=== PATIENT | female | born 1970 | race Caucasian/White ===

== ENCOUNTER → 2016-11-15 | Outpatient (CLI) | payer OTHER ==
--- NOTE | 2016-11-15 08:32 | US ---
EXAMINATION TYPE: US abdomen limited DATE OF EXAM: 11/15/2016 8:04 AM COMPARISON: NONE CLINICAL HISTORY: Abd Distention R14.0. Bloating, right sided pain, nausea/vomiting EXAM MEASUREMENTS: Liver Length: 19.0 cm Gallbladder Wall: 0.3 cm CBD: 0.4 cm Right Kidney: 10.9 x 4.7 x 5.3 cm Findings: Pancreas: visualized portions appear wnl Liver: upper limits of normal Gallbladder: hyperechoic area = 0.7cm Evidence for sonographic White's sign: Yes CBD: wnl Right Kidney: no evidence of hydronephrosis or mass Scanned within patient's area of concern (patient feels lumps mid/right abdomen), hypoechoic area = 0 .7 x 0.6 x 1.0cm IMPRESSION: 1. Nonspecific Hypoechoic area at the site of clinical concern.
--- NOTE | 2016-11-16 09:48 | MM ---
Reason for exam: screening (asymptomatic). Last mammogram was performed 2 years and 2 months ago. Physical Findings: A clinical breast exam by your physician is recommended on an annual basis and results should be correlated with mammographic findings. MG Screening Mammo w CAD Bilateral CC and MLO view(s) were taken. Prior study comparison: September 25, 2014, bilateral MG screening mammo w CAD. July 27, 2006, bilateral screening mammogram w/CAD. The breast tissue is heterogeneously dense. This may lower the sensitivity of mammography. There is no discrete abnormality. No significant changes when compared with prior studies. ASSESSMENT: Negative, BI-RAD 1 RECOMMENDATION: Routine screening mammogram of both breasts in 1 year.
== END | disposition home or self-care (01) ==
LOC: RADMAMWWP 06:58
PROVIDERS: ATTEND Family Medicine
DX: Z12.31 Encounter for screening mammogram for malignant neoplasm of breast (principal); R14.0 Abdominal distension (gaseous)
CPT/HCPCS: 76705; G0202

== ENCOUNTER 2017-04-26 10:51 | Observation (INO) | payer OTHER ==
[2017-04-26] MEDS ORDERED: SODIUM CHLORIDE 0.9% 1,000 ML IV STA (12:34)
[2017-04-26] MEDS ORDERED: ASPIRIN 81 MG CHEW PO STA (12:34)
[2017-04-26] MEDS ORDERED: NITROGLYCERIN SL TABS 0.4 MG TAB SUBLINGUAL STA ×3 (12:34)
--- NOTE | 2017-04-26 12:44 | ED ---
General Adult HPI - General Chief complaint: Chest Pain Stated complaint: back pain Time Seen by Provider: 04/26/17 11:08 Source: patient, RN notes reviewed Mode of arrival: ambulatory Limitations: no limitations - History of Present Illness Initial comments: Patient is a pleasant 47-year-old female presenting to the emergency department complaining of chest discomfort. Onset was this morning. Discomfort is under the left breast and goes the back. Patient states discomfort increases with deep breaths. No associated dyspnea or nausea or sweating. - Related Data Allergies Allergy/AdvReac Type Severity Reaction Status Date / Time latex Allergy Unknown Verified 04/26/17 11:55 sulfamethoxazole Allergy Unknown Verified 04/26/17 11:55 [From Bactrim] trimethoprim [From Bactrim] Allergy Unknown Verified 04/26/17 11:55 baclofen AdvReac swelling/vo Verified 04/26/17 11:55 miting/anxi ety indomethacin [From Indocin] AdvReac swelling/vo Verified 04/26/17 11:55 miting/anxi ety Review of Systems ROS Statement: Those systems with pertinent positive or pertinent negative responses have been documented in the HPI. ROS Other: All systems not noted in ROS Statement are negative. Constitutional: Denies: fever Eyes: Denies: as per HPI, eye pain ENT: Denies: ear pain Respiratory: Denies: cough, dyspnea Cardiovascular: Reports: chest pain Endocrine: Denies: fatigue Gastrointestinal: Denies: abdominal pain Genitourinary: Denies: dysuria Musculoskeletal: Denies: arthralgia Skin: Denies: rash Neurological: Denies: weakness Past Medical History Additional Past Medical History / Comment(s): back pain History of Any Multi-Drug Resistant Organisms: None Reported Past Surgical History: Section, Hysterectomy Additional Past Surgical History / Comment(s): nose surgery, foot surgery, tummy tuck Past Psychological History: Anxiety, Depression Smoking Status: Former smoker Past Alcohol Use History: Occasional Past Drug Use History: None Reported General Exam Limitations: no limitations General appearance: alert, in no apparent distress Head exam: Present: atraumatic Eye exam: Present: normal appearance, PERRL ENT exam: Present: normal oropharynx Neck exam: Present: normal inspection Respiratory exam: Present: normal lung sounds bilaterally. Absent: chest wall tenderness Cardiovascular Exam: Present: regular rate, normal rhythm Expanded Peripheral pulses: 2+: Radial (R), Radial (L), Dorsalis Pedis (R), Dorsalis Pedis (L) GI/Abdominal exam: Present: soft. Absent: distended, tenderness Extremities exam: Present: normal inspection. Absent: pedal edema, calf tenderness Back exam: Present: normal inspection. Absent: tenderness Neurological exam: Present: alert Psychiatric exam: Present: normal affect, normal mood Skin exam: Present: normal color Course Vital Signs 04/26/17 04/26/17 04/26/17 10:56 12:44 13:05 Temperature 97.1 F L Pulse Rate 75 56 L 58 L Respiratory 17 18 18 Rate Blood Pressure 140/99 121/80 141/70 O2 Sat by Pulse 99 99 97 Oximetry 04/26/17 04/26/17 04/26/17 13:10 13:21 13:26 Temperature Pulse Rate 63 57 L 68 Respiratory 18 18 18 Rate Blood Pressure 114/59 132/69 114/69 O2 Sat by Pulse 97 98 96 Oximetry 04/26/17 13:31 Temperature Pulse Rate 66 Respiratory 18 Rate Blood Pressure 116/58 O2 Sat by Pulse 95 Oximetry EKG Findings - EKG Comments: EKG Findings:: Sinus bradycardia 56. MN 174. QRS 98. QT 448. QTC 432. Normal axis. Normal QRS. Normal ST-T. Medical Decision Making - Medical Decision Making Patient reevaluated and resting comfortably in bed. No improvement with nitroglycerin. Case discussed with Dr. Griffin, who will admit for Dr. johnson - Lab Data Result diagrams: 04/26/17 11:35 04/26/17 11:35 Lab Results 04/26/17 04/26/17 04/26/17 Range/Units 11:35 11:35 11:35 WBC 5.0 (3.8-10.6) k/uL RBC 4.07 (3.80-5.40) m/uL Hgb 14.3 (11.4-16.0) gm/dL Hct 40.2 (34.0-46.0) % MCV 98.9 (80.0-100.0) fL MCH 35.2 H (25.0-35.0) pg MCHC 35.6 (31.0-37.0) g/dL RDW 12.3 (11.5-15.5) % Plt Count 183 (150-450) k/uL Neutrophils % 53 % Lymphocytes % 33 % Monocytes % 4 % Eosinophils % 7 % Basophils % 1 % Neutrophils # 2.6 (1.3-7.7) k/uL Lymphocytes # 1.7 (1.0-4.8) k/uL Monocytes # 0.2 (0-1.0) k/uL Eosinophils # 0.3 (0-0.7) k/uL Basophils # 0.0 (0-0.2) k/uL PT (9.0-12.0) sec INR (<1.1) APTT (22.0-30.0) sec D-Dimer (<0.60) mg/L FEU Sodium 140 (137-145) mmol/L Potassium 4.4 (3.5-5.1) mmol/L Chloride 109 H (98-107) mmol/L Carbon Dioxide 23 (22-30) mmol/L Anion Gap 8 mmol/L BUN 15 (7-17) mg/dL Creatinine 0.65 (0.52-1.04) mg/dL Est GFR (MDRD) Af Amer >60 (>60 ml/min/1.73 sqM) Est GFR (MDRD) Non-Af >60 (>60 ml/min/1.73 sqM) Glucose 97 (74-99) mg/dL Calcium 9.3 (8.4-10.2) mg/dL Magnesium 2.1 (1.6-2.3) mg/dL Total Bilirubin 0.4 (0.2-1.3) mg/dL AST 18 (14-36) U/L ALT 27 (9-52) U/L Alkaline Phosphatase 63 (38-126) U/L Total Creatine Kinase 72 (30-135) U/L CK-MB (CK-2) 0.9 (0.0-2.4) ng/mL CK-MB (CK-2) Rel Index 1.3 Troponin I <0.012 (0.000-0.034) ng/mL Total Protein 6.6 (6.3-8.2) g/dL Albumin 4.0 (3.5-5.0) g/dL 04/26/17 Range/Units 11:35 WBC (3.8-10.6) k/uL RBC (3.80-5.40) m/uL Hgb (11.4-16.0) gm/dL Hct (34.0-46.0) % MCV (80.0-100.0) fL MCH (25.0-35.0) pg MCHC (31.0-37.0) g/dL RDW (11.5-15.5) % Plt Count (150-450) k/uL Neutrophils % % Lymphocytes % % Monocytes % % Eosinophils % % Basophils % % Neutrophils # (1.3-7.7) k/uL Lymphocytes # (1.0-4.8) k/uL Monocytes # (0-1.0) k/uL Eosinophils # (0-0.7) k/uL Basophils # (0-0.2) k/uL PT 10.0 (9.0-12.0) sec INR 1.0 (<1.1) APTT 24.5 (22.0-30.0) sec D-Dimer 0.21 (<0.60) mg/L FEU Sodium (137-145) mmol/L Potassium (3.5-5.1) mmol/L Chloride (98-107) mmol/L Carbon Dioxide (22-30) mmol/L Anion Gap mmol/L BUN (7-17) mg/dL Creatinine (0.52-1.04) mg/dL Est GFR (MDRD) Af Amer (>60 ml/min/1.73 sqM) Est GFR (MDRD) Non-Af (>60 ml/min/1.73 sqM) Glucose (74-99) mg/dL Calcium (8.4-10.2) mg/dL Magnesium (1.6-2.3) mg/dL Total Bilirubin (0.2-1.3) mg/dL AST (14-36) U/L ALT (9-52) U/L Alkaline Phosphatase (38-126) U/L Total Creatine Kinase (30-135) U/L CK-MB (CK-2) (0.0-2.4) ng/mL CK-MB (CK-2) Rel Index Troponin I (0.000-0.034) ng/mL Total Protein (6.3-8.2) g/dL Albumin (3.5-5.0) g/dL - Radiology Data Radiology results: image reviewed (Chest x-ray shows no acute process) Disposition Clinical Impression: Chest pain Disposition: ADMITTED IP TO THIS [facility] Referrals: Celeste Pena MD [Primary Care Provider] - 1-2 days Decision Time: 14:02
[2017-04-26 12:49] LABS: Basophils % (A) 1 %; CH 34.1; CHCM 34.6; Eosinophils # (A) 0.3 k/uL (0-0.7); Eosinophils % (A) 7 %; HCT 40.2 % (34.0-46.0); HGB 14.3 gm/dL (11.4-16.0); Luc % (Auto) 2; Lymphocytes # (A) 1.7 k/uL (1.0-4.8); Lymphocytes % (A) 33 %; MCH 35.2 pg (25.0-35.0); MCHC 35.6 g/dL (31.0-37.0); MCV 98.9 fL (80.0-100.0); Mean Platelet Volume 7.5; Monocytes # (A) 0.2 k/uL (0-1.0); Monocytes % (A) 4 %; Neutrophils # (A) 2.6 k/uL (1.3-7.7); Neutrophils % (A) 53 %; RBC 4.07 m/uL (3.80-5.40); RDW 12.3 % (11.5-15.5); WBC (Perox) 4.92
[2017-04-26 12:57] LABS: ALT 27 U/L (9-52); AST 18 U/L (14-36); Alkaline Phosphatase 63 U/L (38-126); Anion Gap 8 mmol/L; Blood Urea Nitrogen 15 mg/dL (7-17); Calcium 9.3 mg/dL (8.4-10.2); Carbon Dioxide 23 mmol/L (22-30); Chloride 109 mmol/L (98-107); Glucose 97 mg/dL (74-99); Magnesium 2.1 mg/dL (1.6-2.3); Non-African American GFR(MDRD) >60 (>60 ml/min/1.73 sqM); Potassium 4.4 mmol/L (3.5-5.1); Sodium 140 mmol/L (137-145); Total Bilirubin 0.4 mg/dL (0.2-1.3); Total Protein 6.6 g/dL (6.3-8.2)
[2017-04-26 12:59] LABS: Partial Thromboplastin Time 24.5 sec (22.0-30.0)
[2017-04-26 13:07] LABS: Creatine Kinase 72 U/L (30-135)
[2017-04-26 13:19] LABS: Creatine Kinase MB 0.9 ng/mL (0.0-2.4); Troponin I <0.012 ng/mL (0.000-0.034)
--- NOTE | 2017-04-26 13:23 | XR ---
EXAMINATION TYPE: XR chest 2V DATE OF EXAM ORDERED: 04/26/2017 HISTORY: Chest Pain. REFERENCE: None. FINDINGS: The lungs are clear. Pleural spaces are clear. Heart size is normal. IMPRESSION: NORMAL CHEST.
[2017-04-26] MEDS ORDERED: NITROGLYCERIN SL TABS 0.4 MG TAB SUBLINGUAL PRN (14:03)
[2017-04-26] MEDS ORDERED: MORPHINE SULFATE 4 MG/ML SYRINGE IV STA (14:05)
[2017-04-26] MEDS: NITROGLYCERIN OINT 1 INCH/GM PACKET TOPICAL SCH (17:16)
[2017-04-26 17:57] LABS: Creatine Kinase 66 U/L (30-135)
[2017-04-26 18:09] LABS: Creatine Kinase MB 0.7 ng/mL (0.0-2.4); Troponin I <0.012 ng/mL (0.000-0.034)
[2017-04-26] MEDS ORDERED: ALPRAZolam 0.25 MG TAB PO PRN (19:53)
[2017-04-26] MEDS: HYDROcodone/APAP 7.5-325MG 1 EACH TAB PO PRN (20:15)
[2017-04-27 00:24] LABS: Creatine Kinase 92 U/L (30-135)
[2017-04-27 00:37] LABS: Creatine Kinase MB 0.6 ng/mL (0.0-2.4); Troponin I <0.012 ng/mL (0.000-0.034)
[2017-04-27] MEDS: NITROGLYCERIN OINT 1 INCH/GM PACKET TOPICAL SCH ×2 (01:40→04:43)
[2017-04-27] MEDS: HYDROcodone/APAP 7.5-325MG 1 EACH TAB PO PRN ×2 (01:44→09:10)
[2017-04-27 07:28] LABS: Cholesterol 179 mg/dL (<200); HDL Cholesterol 54 mg/dL (40-60); Triglycerides 114 mg/dL (<150)
[2017-04-27] MEDS ORDERED: ASPIRIN 325 MG TAB PO SCH (09:00)
--- NOTE | 2017-04-27 10:47 | P.CRDCN ---
History of Present Illness Consult date: 04/27/17 Requesting physician: Danielle Morel Consult reason: chest pain Chief complaint: Abdominal pain History of present illness: This is a 47-year-old female with no prior documented history of hypertension, no diabetes, no hyperlipidemia, she does smoke cigarettes off and on, she presents to the hospital with symptoms of pain beneath the left breast, upper left abdominal region around to her back. Patient also states that the pain goes across the abdomen over to the right side. She denies any discomfort in the chest, no difficulty in breathing. Patient did have an abdominal ultrasound performed in October which revealed nonspecific hypoechoic area at the site of clinical concern. She was advised at that time to undergo a HIDA scan as well as an EGD for her mother became quite ill and those tests had to be canceled. EKG on presentation shows a sinus bradycardia with nonspecific ST- T wave changes. Chest x-ray normal. At pressure 100/50 with a heart rate in the 50s. She is afebrile. 99% on room air. ABC normal, d-dimer negative. Potassium 4.4, BUN 15, creatinine 0.6. Easy level II.1, AST ALT and alk phos are normal. Troponins negative 3. At the time of my examination this morning , patient denies any chest discomfort. She does complain of right upper quadrant tenderness on palpation of the abdomen. Past Medical History Past Medical History: Osteoarthritis (OA) Additional Past Medical History / Comment(s): back pain, BRONCHITIS, "HEARTBURN " History of Any Multi-Drug Resistant Organisms: None Reported Past Surgical History: Section, Hysterectomy Additional Past Surgical History / Comment(s): nose surgery, LT foot BONE SPURS REMOVED, tummy tuck Past Anesthesia/Blood Transfusion Reactions: Motion Sickness, Postoperative Nausea & Vomiting (PONV) Additional Past Anesthesia/Blood Transfusion Reaction / Comment(s): CLAUSTERPHOBIA Smoking Status: Current every day smoker - Past Family History Mother Family Medical History: COPD, Thyroid Disorder Additional Family Medical History / Comment(s): DEPRESSION/ANXIETY, DDD Father Family Medical History: Hypertension Additional Family Medical History / Comment(s): ANX/DEPRESSION, ALCOHOLIC, DDD Medications and Allergies Home Medications Medication Instructions Recorded Confirmed Type Diazepam [Valium] 5 mg PO BID PRN 04/27/17 04/27/17 History Allergies Allergy/AdvReac Type Severity Reaction Status Date / Time latex Allergy Rash/Hives/ Verified 04/27/17 07:28 Itching sulfamethoxazole Allergy Unknown Verified 04/26/17 11:55 [From Bactrim] trimethoprim [From Bactrim] Allergy Unknown Verified 04/26/17 11:55 baclofen AdvReac swelling/vo Verified 04/26/17 11:55 miting/anxi ety indomethacin [From Indocin] AdvReac swelling/vo Verified 04/26/17 11:55 miting/anxi ety Physical Exam Vitals: Vital Signs Temp Pulse Pulse Resp BP BP BP 04/27/17 10:21 04/27/17 08:45 55 L 04/27/17 08:00 97.4 F L 53 L 16 102/53 04/27/17 03:57 98 F 58 L 18 100/51 04/27/17 03:10 53 L 18 04/27/17 00:00 97.9 F 56 L 18 140/76 04/26/17 19:36 97.0 F L 62 18 121/61 04/26/17 16:00 97.6 F 55 L 16 131/72 04/26/17 14:32 97 F L 60 18 135/71 04/26/17 13:31 66 18 116/58 04/26/17 13:26 68 18 114/69 04/26/17 13:21 57 L 18 132/69 04/26/17 13:10 63 18 114/59 04/26/17 13:05 58 L 18 141/70 04/26/17 12:44 56 L 18 121/80 04/26/17 10:56 97.1 F L 75 17 140/99 Pulse Ox 04/27/17 10:21 95 04/27/17 08:45 04/27/17 08:00 97 04/27/17 03:57 99 04/27/17 03:10 04/27/17 00:00 99 04/26/17 19:36 97 04/26/17 16:00 100 04/26/17 14:32 99 04/26/17 13:31 95 04/26/17 13:26 96 04/26/17 13:21 98 04/26/17 13:10 97 04/26/17 13:05 97 04/26/17 12:44 99 04/26/17 10:56 99 Intake and Output 04/26/17 04/27/17 04/27/17 22:59 06:59 14:59 Intake Total 480 Balance 480 Intake: Oral 480 Other: Voiding Method Toilet Toilet Toilet # Voids 1 3 PHYSICAL EXAMINATION: HEENT: Head is atraumatic, normocephalic. Pupils equal, round. Neck is supple. There is no elevated jugular venous pressure. HEART EXAMINATION: Heart S1, S2 normal. No murmur or gallop heard. CHEST EXAMINATION: Lungs are clear to auscultation and precussion. No chest wall tenderness is noted on palpation or with deep breathing. ABDOMEN: Soft, nontender. Bowel sounds are heard. No organomegaly noted. EXTREMITIES: 2+ peripheral pulses with no evidence of peripheral edema and no calf tenderness noted. NEUROLOGIC patient is awake, alert and oriented -3. . Results 04/26/17 11:35 04/26/17 11:35 Cardiac Enzymes 04/26/17 04/26/17 04/26/17 Range/Units 11:35 11:35 17:28 AST 18 (14-36) U/L CK-MB (CK-2) 0.9 0.7 (0.0-2.4) ng/mL Troponin I <0.012 <0.012 (0.000-0.034) ng/mL 04/26/17 Range/Units 23:47 AST (14-36) U/L CK-MB (CK-2) 0.6 (0.0-2.4) ng/mL Troponin I <0.012 (0.000-0.034) ng/mL Coagulation 04/26/17 Range/Units 11:35 PT 10.0 (9.0-12.0) sec APTT 24.5 (22.0-30.0) sec Lipids 04/27/17 Range/Units 06:53 Triglycerides 114 (<150) mg/dL Cholesterol 179 (<200) mg/dL HDL Cholesterol 54 (40-60) mg/dL CBC 04/26/17 Range/Units 11:35 WBC 5.0 (3.8-10.6) k/uL RBC 4.07 (3.80-5.40) m/uL Hgb 14.3 (11.4-16.0) gm/dL Hct 40.2 (34.0-46.0) % Plt Count 183 (150-450) k/uL Comprehensive Metabolic Panel 04/26/17 Range/Units 11:35 Sodium 140 (137-145) mmol/L Potassium 4.4 (3.5-5.1) mmol/L Chloride 109 H (98-107) mmol/L Carbon Dioxide 23 (22-30) mmol/L BUN 15 (7-17) mg/dL Creatinine 0.65 (0.52-1.04) mg/dL Glucose 97 (74-99) mg/dL Calcium 9.3 (8.4-10.2) mg/dL AST 18 (14-36) U/L ALT 27 (9-52) U/L Alkaline Phosphatase 63 (38-126) U/L Total Protein 6.6 (6.3-8.2) g/dL Albumin 4.0 (3.5-5.0) g/dL Current Medications Generic Name Dose Route Start Last Admin Trade Name Freq PRN Reason Stop Dose Admin Hydrocodone Bitart/Acetaminophen 1 each 04/26/17 19:52 04/27/17 09:10 [place] 7.5-325 PO 1 each Q6H PRN Administration Pain Alprazolam 0.25 mg 04/26/17 19:53 04/26/17 20:16 Xanax PO 0.25 mg BID PRN Administration Anxiety Aspirin 325 mg 04/27/17 09:00 Aspirin PO DAILY MARGARITA Nitroglycerin 1 inch 04/26/17 18:00 04/27/17 04:43 Nitro-Bid Oint TOPICAL Not Given Q6HR MARGARITA Nitroglycerin 0.4 mg 04/26/17 14:03 Nitrostat SUBLINGUAL Q5M PRN Chest Pain Sodium Chloride 10 ml 04/26/17 21:00 04/26/17 23:49 Saline Flush IV Not Given BID MARGARITA Intake and Output 04/26/17 04/27/17 04/27/17 22:59 06:59 14:59 Intake Total 480 Balance 480 Intake: Oral 480 Other: Voiding Method Toilet Toilet Toilet # Voids 1 3 04/26/17 11:35 04/26/17 11:35 EKG Interpretations (text) EKG shows normal sinus rhythm with nonspecific ST-T wave changes Assessment and Plan Plan: Assessment and Plan #1 epigastric and abdominal discomfort, could be secondary to GERD. Patient had been scheduled previously to undergo HIDA scan and upper endoscopy which she had to cancel. No specific chest discomfort. Troponins negative 3. EKG shows normal sinus rhythm with no acute changes. #2 nicotine dependence Plan We will discontinue the Nitropaste. Discontinue aspirin. Obtain echocardiogram with Doppler study and stress echocardiographic study. DNP note has been reviewed, I agree with a documented findings and plan of care. Patient was seen and examined.
--- NOTE | 2017-04-27 11:57 | P.HPIM ---
History of Present Illness H&P Date: 04/27/17 Chief Complaint: Chest pain This is a 47-year-old female with no known past medical history low presented to the emergency room with chest pain. Patient said that her pain was mostly in her left chest and under her left breast. Patient said the pain is radiating all across her chest to the right side as well. She denies difficulty breathing. She described the pain as sharp. She never had cardiac problems before. No history of hypertension or diabetes. Patient is a current every day smoker and smokes approximately one pack per day. Patient said that she has been evaluated recently for possible gallbladder dysfunction and was planned for her to have a HIDA scan. Patient did not follow-up as directed as she was busy taking care of her mother. She presented to the emergency room a 12-lead EKG showed sinus bradycardia with no acute ischemic changes. Patient was placed in observation for telemetry monitoring and cardiology consultation. Troponin negative. Review of Systems Review of system: 14 points review of systems were obtained and were negative except to what were mentioned in the HPI. Past Medical History Past Medical History: Osteoarthritis (OA) Additional Past Medical History / Comment(s): back pain, BRONCHITIS, "HEARTBURN " History of Any Multi-Drug Resistant Organisms: None Reported Past Surgical History: Section, Hysterectomy Additional Past Surgical History / Comment(s): nose surgery, LT foot BONE SPURS REMOVED, tummy tuck Past Anesthesia/Blood Transfusion Reactions: Motion Sickness, Postoperative Nausea & Vomiting (PONV) Additional Past Anesthesia/Blood Transfusion Reaction / Comment(s): CLAUSTERPHOBIA Smoking Status: Current every day smoker - Past Family History Mother Family Medical History: COPD, Thyroid Disorder Additional Family Medical History / Comment(s): DEPRESSION/ANXIETY, DDD Father Family Medical History: Hypertension Additional Family Medical History / Comment(s): ANX/DEPRESSION, ALCOHOLIC, DDD Medications and Allergies Home Medications Medication Instructions Recorded Confirmed Type Diazepam [Valium] 5 mg PO BID PRN 04/27/17 04/27/17 History Allergies Allergy/AdvReac Type Severity Reaction Status Date / Time latex Allergy Rash/Hives/ Verified 04/27/17 07:28 Itching sulfamethoxazole Allergy Unknown Verified 04/26/17 11:55 [From Bactrim] trimethoprim [From Bactrim] Allergy Unknown Verified 04/26/17 11:55 baclofen AdvReac swelling/vo Verified 04/26/17 11:55 miting/anxi ety indomethacin [From Indocin] AdvReac swelling/vo Verified 04/26/17 11:55 miting/anxi ety Physical Exam Vitals: Vital Signs Temp Pulse Pulse Resp BP BP BP 04/27/17 10:21 04/27/17 08:45 55 L 04/27/17 08:00 97.4 F L 53 L 16 102/53 04/27/17 03:57 98 F 58 L 18 100/51 04/27/17 03:10 53 L 18 04/27/17 00:00 97.9 F 56 L 18 140/76 04/26/17 19:36 97.0 F L 62 18 121/61 04/26/17 16:00 97.6 F 55 L 16 131/72 04/26/17 14:32 97 F L 60 18 135/71 04/26/17 13:31 66 18 116/58 04/26/17 13:26 68 18 114/69 04/26/17 13:21 57 L 18 132/69 04/26/17 13:10 63 18 114/59 04/26/17 13:05 58 L 18 141/70 04/26/17 12:44 56 L 18 121/80 Pulse Ox 04/27/17 10:21 95 04/27/17 08:45 04/27/17 08:00 97 04/27/17 03:57 99 04/27/17 03:10 04/27/17 00:00 99 04/26/17 19:36 97 04/26/17 16:00 100 04/26/17 14:32 99 04/26/17 13:31 95 04/26/17 13:26 96 04/26/17 13:21 98 04/26/17 13:10 97 04/26/17 13:05 97 04/26/17 12:44 99 Intake and Output 04/26/17 04/27/17 04/27/17 22:59 06:59 14:59 Intake Total 480 Balance 480 Intake: Oral 480 Other: Voiding Method Toilet Toilet Toilet # Voids 1 3 General: The patient is awake and alert, in no distress Eye: there is normal conjunctiva bilaterally. Neck: The neck is supple, there is no JVD. Cardiovascular: Normal S1-S2, no S3-S4, no murmurs. Respiratory: Lungs clear to auscultation bilaterally Gastrointestinal: Abdomen is soft, nontender Musculoskeletal: There is no pedal edema. Neurological:. Speech is normal. Skin: Skin is warm and dry Results CBC & Chem 7: 04/26/17 11:35 04/26/17 11:35 Labs: Abnormal Lab Results - Last 24 Hours (Table) 04/26/17 04/26/17 04/27/17 Range/Units 11:35 11:35 06:53 MCH 35.2 H (25.0-35.0) pg Chloride 109 H (98-107) mmol/L LDL Cholesterol, Calc 102 H (0-99) mg/dL Thrombosis Risk Factor Assmnt - Choose All That Apply Any of the Below Risk Factors Present?: Yes Each Factor Represents 1 point: Age 41-60 years, Obesity (BMI >25) Other Risk Factors: No Other congenital or acquired thrombophilia - If yes, enter type in comment: No Thrombosis Risk Factor Assessment Total Risk Factor Score: 2 Thrombosis Risk Factor Assessment Level: Low Risk Assessment and Plan Plan: 1. Chest pain, with typical and atypical features. 12 leads EKG showed no acute ischemic changes. Troponins are negative. Cardiology consulted for further evaluation. Echocardiogram ordered. Chest x-ray normal. Plan for stress test in the morning. 2. Generalized anxiety disorder 3. Chronic low back pain on [place] at home as needed
[2017-04-27 13:07] VITALS: BMI 32.5
[2017-04-27] MEDS ORDERED: MORPHINE SULFATE 2 MG/ML SYRINGE IVP PRN (13:23)
[2017-04-27 16:09] VITALS: BP 137/75; PULSE 71; RESP 17; TEMP 97.7
--- NOTE | 2017-05-02 08:18 | ECHOF ---
Referral Reason: MEASUREMENTS -------- HEIGHT: 175.3 cm WEIGHT: 99.8 kg BP: IVSd: 1.0 cm (0.6 - 1.1) LVIDd: 4.1 cm (3.9 - 5.3) LVPWd: 1.2 cm (0.6 - 1.1) IVSs: 1.3 cm LVIDs: 2.2 cm LVPWs: 1.8 cm Ao Diam: 3.4 cm (2.0 - 3.7) AV Cusp: 2.2 cm (1.5 - 2.6) LA Diam: 3.2 cm (2.7 - 3.8) MV EXCURSION: 23.254 mm (> 18.000) MV EF SLOPE: 183 mm/s (70 - 150) EPSS: 0.4 cm MV E Brad: 0.89 m/s MV DecT: 333 ms MV A Brad: 0.36 m/s MV E/A Ratio: 2.44 RAP: 5.00 mmHg RVSP: 23.43 mmHg FINDINGS -------- Sinus rhythm. This was a technically good study. There is mild concentric left ventricular hypertrophy. The right ventricle is normal in size and function. The left atrium is normal in size. The right atrium is normal in size. The aortic valve is trileaflet, and appears structurally normal. No aortic stenosis or regurgitation. Mild mitral regurgitation is present. Mild tricuspid regurgitation present. The right ventricular systolic pressure, as measured by Doppler, is 23.43mmHg. Pulmonic valve appears structurally normal. The aortic root size is normal. The pericardium is normal. CONCLUSIONS -------- 1. Sinus rhythm. 2. The right ventricular systolic pressure, as measured by Doppler, is 23.43mmHg. 3. Pulmonic valve appears structurally normal. 4. The aortic root size is normal. 5. The pericardium is normal. 6. This was a technically good study. 7. There is mild concentric left ventricular hypertrophy. 8. The right ventricle is normal in size and function. 9. The left atrium is normal in size. 10. The right atrium is normal in size. 11. The aortic valve is trileaflet, and appears structurally normal. No aortic stenosis or regurgitation. 12. Mild mitral regurgitation is present. 13. Mild tricuspid regurgitation present. TEST [employer] ECONOMIST: Amanda Steele RDCS
--- NOTE | 2017-05-03 08:59 | ECHOS ---
DATE OF SERVICE: 04/27/2017 STRESS ECHOCARDIOGRAM INDICATION: Chest pain. BASELINE HEART RATE: 50 BASELINE BLOOD PRESSURE: 135/79 MAXIMUM HEART RATE: 130 MAXIMUM BLOOD PRESSURE: 154/74 85% MPHR: - 100% MPHR: - METS: 10 MAXIMUM STAGE REACHED: III TOTAL EXERCISE TIME: 9:30 Baseline EKG shows sinus rhythm, normal axis, normal intervals. Patient exercised on Albert protocol for a total of 9:30 minutes achieved 10 METS. The peak heart rate of 130 beats per minute which is 75% of the predicted maximum heart rate. The test was stopped secondary to inability to exercise further. Baseline echo shows normal left ventricular size, wall motion and systolic function. Post-exercise there is normal hyperdynamic response to all segments of myocardium noted. CONCLUSION: 1. Good exercise tolerance. 2. Inconclusive stress echo due to inability to obtain target heart rate, but at the heart rate achieved, stress test is negative. MTDD
--- NOTE | 2017-05-13 15:28 | P.DS ---
Providers Date of admission: 04/26/17 14:03 Attending physician: Danielle Morel Consults: 04/26/17 14:03 Consult Physician Urgent Consulting Provider: Feliciano Galvez Consult Reason/Comments: cp Do you want consulting provider notified?: Yes Primary care physician: Celeste Pena Hospital Course: 1. Chest pain, with typical and atypical features. 12 leads EKG showed no acute ischemic changes. Troponins are negative. Chest x-ray normal. Cardiology consulted for further evaluation. Patient underwent stress echocardiogram that was negative. She was cleared by cardiology for discharge. 2. Generalized anxiety disorder 3. Chronic low back pain on [place] at home as needed Plan - Discharge Summary New Discharge Prescriptions: No Action HYDROcodone/APAP 7.5-325MG [[place] 7.5-325] 1 tab PO TID Discharge Medication List HYDROcodone/APAP 7.5-325MG [[place] 7.5-325] 1 tab PO TID 05/09/17 [History] Follow up Appointment(s)/Referral(s): Celeste Pena MD [Primary Care Provider] - 1-2 days Discharge Disposition: HOME SELF-CARE
== END 2017-04-27 16:08 | disposition home or self-care (01) ==
LOC: EC 10:51 → 6SEL 14:03 → 3OBS 23:13
PROVIDERS: ADMIT Internal Medicine; ATTEND Internal Medicine
DX: R07.89 Other chest pain (principal); F41.1 Generalized anxiety disorder; G89.29 Other chronic pain; M54.5 Low back pain; R10.13 Epigastric pain; R10.11 Right upper quadrant pain; F17.210 Nicotine dependence, cigarettes, uncomplicated; Z88.2 Allergy status to sulfonamides; Z88.8 Allergy status to other drugs, medicaments and biological substances; Z91.040 Latex allergy status; Z82.49 Family history of ischemic heart disease and other diseases of the circulatory system; Z82.5 Family history of asthma and other chronic lower respiratory diseases; Z81.8 Family history of other mental and behavioral disorders
CPT/HCPCS: 99285; 96361 ×4; 96374; 96376; 36415; 94760; 93005; 93017; 93306; 93350; 85379; 80061; 80053; 82550; 82553; 83735; 84484; 85025; 85610; 85730; 71020; G0378 ×2; J2270 ×2

== ENCOUNTER → 2017-05-04 | Outpatient (CLI) | payer OTHER ==
--- NOTE | 2017-05-04 10:05 | NM ---
EXAMINATION TYPE: NM hepatobiliary w EF DATE OF EXAM: 05/04/2017 COMPARISON: Ultrasound 11/15/2016 HISTORY: 47-year-old female generalized abdominal pain TECHNIQUE: After the intravenous administration of 5.36 mCi Tc 99m Mebrofenin hepatobiliary scintigra phy is performed. Immediate images post injection. FINDINGS: There is satisfactory initial accumulation of tracer by the liver. The gallbladder is visualized wit hin 12 minutes. The small bowel activity is noted within 40 minutes. At one hour 8 ounces of oral e nsure plus is given to mimic CCK and gallbladder ejection fraction is calculated at 98 %, elevated. IMPRESSION: 1. No scintigraphic evidence for acute/chronic cholecystitis or biliary dyskinesia. 2. Gallbladder ejection fraction of 98%. Elevated gallbladder ejection fraction has been described in the setting of gallbladder hyperkinesia. Further clinical correlation recommended.
== END | disposition home or self-care (01) ==
LOC: RADNMMAIN 06:43
PROVIDERS: ATTEND Surgery
DX: K82.8 Other specified diseases of gallbladder (principal)
CPT/HCPCS: 78226; A9537

== ENCOUNTER 2017-05-15 09:13 | Day surgery (SDC) | payer OTHER ==
[2017-05-09 15:27] VITALS: BMI 33.2
[~2017-05-15 09:13] MED LIST: LACTATED RINGERS 1,000 ML IV SCH; LIDOCAINE 1% 20 ML VIAL (10MG/ML) FOR IV START INTRADERMA PRN
[2017-05-15 10:05] VITALS: TEMP 97.7
[2017-05-15] MEDS ORDERED: LIDOCAINE 1% INJ 10MG/ML (20 ML MDV) ONE (11:27)
[2017-05-15] MEDS ORDERED: PROPOFOL 10 MG/ML 20 ML VIAL IV ONE (11:27)
--- NOTE | 2017-05-15 11:34 | P.GSHP ---
History of Present Illness H&P Date: 05/15/17 Chief Complaint: GERD This a 39-year-old female referred from Dr. Pena . She's had issues with GERD. She presents today for EGD. Past Medical History Past Medical History: GERD/Reflux, Osteoarthritis (OA) Additional Past Medical History / Comment(s): back pain-PT STATES HAS COLLAPSED DISC IN BACK THAT AFFECTS HER LEFT SIDE,, BRONCHITIS, History of Any Multi-Drug Resistant Organisms: None Reported Past Surgical History: Section, Hysterectomy Additional Past Surgical History / Comment(s): nose surgery, LT foot BONE SPURS REMOVED, tummy tuck Past Anesthesia/Blood Transfusion Reactions: Motion Sickness, Postoperative Nausea & Vomiting (PONV) Additional Past Anesthesia/Blood Transfusion Reaction / Comment(s): CLAUSTROPHOBIA Smoking Status: Current every day smoker - Past Family History Mother Family Medical History: COPD, Thyroid Disorder Additional Family Medical History / Comment(s): DEPRESSION/ANXIETY, DDD Father Family Medical History: Hypertension Additional Family Medical History / Comment(s): ANX/DEPRESSION, ALCOHOLIC, DDD Medications and Allergies Home Medications Medication Instructions Recorded Confirmed Type HYDROcodone/APAP 7.5-325MG [[place] 1 tab PO TID 05/09/17 05/15/17 History 7.5-325] Allergies Allergy/AdvReac Type Severity Reaction Status Date / Time latex Allergy Rash/Hives/ Verified 05/15/17 10:04 Itching sulfamethoxazole Allergy Rash/Hives Verified 05/15/17 10:04 [From Bactrim] trimethoprim [From Bactrim] Allergy Rash/Hives Verified 05/15/17 10:04 baclofen AdvReac swelling/vo Verified 05/15/17 10:04 miting/anxi ety indomethacin [From Indocin] AdvReac swelling/vo Verified 05/15/17 10:04 miting/anxi ety Surgical - Exam Vital Signs Temp Pulse BP Pulse Ox 97.7 F 58 L 110/66 99 05/15/17 10:04 05/15/17 10:04 05/15/17 10:04 05/15/17 10:04 - General well developed, no distress - Eyes PERRL - ENT normal pinna - Neck no masses - Respiratory normal expansion - Cardiovascular Rhythm: regular - Abdomen Abdomen: soft, non tender Assessment and Plan Plan: EGD. We'll perform colonoscopy
--- NOTE | 2017-05-15 11:40 | P.OP ---
Date of Procedure: 05/15/17 Preoperative Diagnosis: GERD Postoperative Diagnosis: Antral gastritis Small hiatal hernia esophagitis Procedure(s) Performed: EGD Implants: Anesthesia: MAC Surgeon: Bhavesh Fonseca Pathology: other (Antrum, esophagus) Condition: stable Disposition: PACU Indications for Procedure: Operative Findings: Description of Procedure: The patient's placed on the endoscopy table in the lateral position. She received IV sedation. The gastroscope placed oropharynx passed in the esophagus and stomach. The scope was then placed through the pylorus. The first and second portion of the duodenum appeared normal. Scope was then brought back the antrum and this appeared mildly inflamed. This area is biopsied. The scope was unretroflexed and remainder of the stomach appeared normal. There was a small hiatal hernia. The GE junction was at 40 cm. The distal esophagus was mildly inflamed a biopsies performed. The proximal esophagus appeared normal. The scope was withdrawn for patient.
[2017-05-15 12:18] VITALS: BP 116/76; PULSE 52
== END 2017-05-15 12:36 | disposition home or self-care (01) ==
LOC: ORWHC2ENDO 09:13
PROVIDERS: ATTEND Surgery
DX: K21.0 Gastro-esophageal reflux disease with esophagitis (principal); K29.50 Unspecified chronic gastritis without bleeding; K44.9 Diaphragmatic hernia without obstruction or gangrene; M19.90 Unspecified osteoarthritis, unspecified site; F17.200 Nicotine dependence, unspecified, uncomplicated; Z79.899 Other long term (current) drug therapy; Z79.891 Long term (current) use of opiate analgesic; Z88.2 Allergy status to sulfonamides; Z88.1 Allergy status to other antibiotic agents; Z91.040 Latex allergy status
CPT/HCPCS: 88305; 88342; 43239; J2001; J2704

== ENCOUNTER → 2017-06-04 | Outpatient (CLI) | payer OTHER ==
[2017-05-31 14:47] VITALS: BMI 33.2
[2017-06-04 12:20] VITALS: BP 144/84; PULSE 63; RESP 18; TEMP 97.1
--- NOTE | 2017-06-04 13:00 | P.CONS ---
History of Present Illness - Reason for Consult Consult date: 06/04/17 - Chief Complaint Lower back pain - History of Present Illness This is a 47-year-old female with history of chronic lower back pain for the last few years with no precipitating events. She also describes shooting pain down both legs to the mid thigh area laterally. Patient denies any numbness or tingling in the lower extremities. She also denies any weakness in the lower extremities. She does not describe any bowel or bladder dysfunction except for some urinary urgency. The pain gets worse by standing and sitting for too long and also by driving, walking around would help with this pain occasionally as she states. The patient admits to using tobacco. She tried physical therapy previously with mild relief of her pain and she goes to a chiropractor at this point. Past Medical History Past Medical History: GERD/Reflux, Musculoskeletal Disorder, Osteoarthritis (OA) Additional Past Medical History / Comment(s): HX N/V/D, EGD DONE - POS HIATAL HERNIA; CHOLECYSTITIS. CHRONIC BACK PAIN, LUMBAR DDD; OCC PAIN DOWN LT LEG, LT KNEE, FOOT. RECENT CHIROPRACTIC TX HELPFUL. History of Any Multi-Drug Resistant Organisms: None Reported Past Surgical History: Section, Hysterectomy Additional Past Surgical History / Comment(s): NASAL SURG. EXC LT FOOT SPURS. TUMMY TUCK Past Anesthesia/Blood Transfusion Reactions: Motion Sickness, Postoperative Nausea & Vomiting (PONV) Additional Past Anesthesia/Blood Transfusion Reaction / Comm: CLAUSTERPHOBIA Past Psychological History: Anxiety, Depression, Panic Disorder Additional Psychological History / Comment(s): NO CURRENT TX Smoking Status: Current every day smoker Past Alcohol Use History: Occasional Additional Past Alcohol Use History / Comment(s): SMOKES, < 1/2 PPD, ON/OFF SINCE 1991 - QUIT SEV TIMES. 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 HAS USED COCAINE OCCASSIONALLY-LAST TIME USED WAS 4 MONTHS AGO. - Past Family History Mother Family Medical History: COPD, Thyroid Disorder Additional Family Medical History / Comment(s): DEPRESSION/ANXIETY, DDD Father Family Medical History: Hypertension Additional Family Medical History / Comment(s): ANX/DEPRESSION, ALCOHOLIC, DDD Medications and Allergies Home Medications Medication Instructions Recorded Confirmed Type HYDROcodone/APAP 7.5-325MG [[place] 1 tab PO TID PRN 05/09/17 06/04/17 History 7.5-325] Omeprazole [PriLOSEC] 40 mg PO DAILY PRN 06/04/17 06/04/17 History Allergies Allergy/AdvReac Type Severity Reaction Status Date / Time latex Allergy Rash/Hives/ Verified 06/04/17 12:09 Itching NSAIDS (Non-Steroidal Allergy Swelling, Verified 06/04/17 12:09 Anti-Inflamma VOMITING sulfamethoxazole Allergy Rash/Hives Verified 06/04/17 12:09 [From Bactrim] trimethoprim [From Bactrim] Allergy Rash/Hives Verified 06/04/17 12:09 baclofen AdvReac swelling/vo Verified 06/04/17 12:09 miting/anxi ety indomethacin [From Indocin] AdvReac swelling/vo Verified 06/04/17 12:09 miting/anxi ety Physical Exam Vitals: Vital Signs Temp Pulse Resp BP Pulse Ox 06/04/17 12:11 97.1 F L 63 18 144/84 97 The patient is alert oriented 3 no apparent distress. Neuro exam of the lower extremities showed normal and symmetrical deep tendon reflexes and muscle strength. She has tenderness in the lumbar paravertebral area bilaterally more on the left side than the right side. There is some tenderness around the left sacroiliac joint. Straight leg raising test negative bilaterally. Facet loading test negative. The patient has normal range of motion of the lumbar spine. Assessment and Plan Plan: This is a 47-year-old female with chronic lower back pain and normal neurological exam in the lower extremities. The patient has some GI problems and she is scheduled to have cholecystectomy by the end of this month. The patient's MRI showed mild degenerative changes in the lumbar spine and mild lumbar stenosis. The patient has been on [place] for only 2 months now she takes 3 pills a day. Recommendations: Referred to physical therapy Patient was advised to quit using tobacco The patient was advised to go down on the [place] and preferably to quit using it I will schedule the patient to have lumbar epidural steroid injection as requested by the referring physician. The procedure was explained to the patient and her questions were answered. Since the patient is going to have cholecystectomy by the end of this month we are going to wait on the lumbar epidural steroid injection for at least 4 weeks after her surgery. I thank you for the referral
== END | disposition home or self-care (01) ==
LOC: PNWHC3 11:44
PROVIDERS: ATTEND Anesthesiology
DX: M48.06 Spinal stenosis, lumbar region (principal); M47.816 Spondylosis without myelopathy or radiculopathy, lumbar region; F32.9 Major depressive disorder, single episode, unspecified; F41.9 Anxiety disorder, unspecified; K21.9 Gastro-esophageal reflux disease without esophagitis; F17.200 Nicotine dependence, unspecified, uncomplicated; Z79.899 Other long term (current) drug therapy; Z91.040 Latex allergy status; Z88.2 Allergy status to sulfonamides; Z88.8 Allergy status to other drugs, medicaments and biological substances
CPT/HCPCS: 99211

== ENCOUNTER 2017-06-21 06:32 | Day surgery (SDC) | payer OTHER ==
[2017-06-19 18:30] VITALS: BMI 33.2
[~2017-06-21 06:32] MED LIST changes: +DEXAMETHASONE SOD PHOSPHATE 10 MG/ML 1 ML VIAL IV ONE; +HYDROmorphone 1 MG/ML 1 ML SYRINGE IVP PRN; +MIDAZOLAM 2 MG/2 ML VIAL IV PRN; +ONDANSETRON 4 MG/2 ML VIAL IVP ONE; +SCOPOLAMINE 1.5MG/72HR PATCH TRANSDERM ONE
--- NOTE | 2017-06-21 07:49 | P.GSHP ---
History of Present Illness H&P Date: 06/21/17 Chief Complaint: Right upper quadrant pain This is a 47-year-old female for from Dr. Mota. Patient's had complaints of right quadrant pain. Her recent HIDA scan shows abnormal ejection fraction of 90%. Patient presents today for laparoscopic cholecystectomy for chronic cholecystitis. Past Medical History Past Medical History: GERD/Reflux, Osteoarthritis (OA) Additional Past Medical History / Comment(s): Back Pain, "COLLAPSED DISC." SEVERE ABD PAIN. History of Any Multi-Drug Resistant Organisms: None Reported Past Surgical History: Section, Hysterectomy Additional Past Surgical History / Comment(s): Nose surgery X2. LT foot BONE SPURS REMOVED. Tummy Tuck Past Anesthesia/Blood Transfusion Reactions: Motion Sickness, Postoperative Nausea & Vomiting (PONV) Additional Past Anesthesia/Blood Transfusion Reaction / Comment(s): CLAUSTROPHOBIA. Past Psychological History: Anxiety, Depression Additional Psychological History / Comment(s): CURRENT ANXIETY, NO CURRENT RX. Smoking Status: Current every day smoker Past Alcohol Use History: Occasional Additional Past Alcohol Use History / Comment(s): HAS SMOKED OFF/ON FOR 25 YEARS. STARTED 1991, LESS THAN 1/2 PPD. DRINKS ABOUT 12 BEER PER WEEK, DOWN TO 6 PER WEEK. 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 HAS USED COCAINE X1. - Past Family History Mother Family Medical History: COPD, Thyroid Disorder Additional Family Medical History / Comment(s): DEPRESSION/ANXIETY, DDD Father Family Medical History: Hypertension Additional Family Medical History / Comment(s): ANX/DEPRESSION, ALCOHOLIC, DDD Medications and Allergies Home Medications Medication Instructions Recorded Confirmed Type HYDROcodone/APAP 7.5-325MG [[place] 1 tab PO TID PRN 05/09/17 06/21/17 History 7.5-325] Omeprazole [PriLOSEC] 40 mg PO DAILY PRN 06/04/17 06/19/17 History Allergies Allergy/AdvReac Type Severity Reaction Status Date / Time latex Allergy Rash/Hives/ Verified 06/19/17 18:11 Itching NSAIDS (Non-Steroidal Allergy Swelling, Verified 06/19/17 18:11 Anti-Inflamma VOMITING sulfamethoxazole Allergy Rash/Hives Verified 06/19/17 18:11 [From Bactrim] trimethoprim [From Bactrim] Allergy Rash/Hives Verified 06/19/17 18:11 baclofen AdvReac swelling/vo Verified 06/19/17 18:11 miting/anxi ety indomethacin [From Indocin] AdvReac swelling/vo Verified 06/19/17 18:11 miting/anxi ety Surgical - Exam Vital Signs Temp Pulse Resp BP Pulse Ox 97.7 F 69 18 120/82 97 06/21/17 06:54 06/21/17 06:54 06/21/17 06:54 06/21/17 06:54 06/21/17 06:54 - General well developed, no distress - Eyes PERRL - ENT normal pinna - Neck no masses - Respiratory normal expansion - Cardiovascular Rhythm: regular - Abdomen Abdomen: soft, non tender Assessment and Plan Plan: Abnormal HIDA scan Right upper quadrant pain Chronic cholecystitis We'll perform laparoscopic cholecystectomy.
[2017-06-21] MEDS ORDERED: NEOSTIGMINE 1 MG/ML 10 ML VIAL ONE (07:54)
[2017-06-21] MEDS ORDERED: SUCCINYLCHOLINE CHLORIDE 100 MG/5 ML SYR IV ONE (07:54)
[2017-06-21] MEDS ORDERED: PROPOFOL 10 MG/ML 20 ML VIAL IV ONE (07:54)
[2017-06-21] MEDS ORDERED: LIDOCAINE 1% INJ 10MG/ML (20 ML MDV) ONE (07:54)
[2017-06-21] MEDS ORDERED: fentaNYL (PF) 50 MCG/ML 2 ML AMP ONE (07:54)
[2017-06-21] MEDS ORDERED: MIDAZOLAM 2 MG/2 ML VIAL ONE (07:54)
[2017-06-21] MEDS ORDERED: ROCURONIUM BROMIDE 10 MG/ML 10 ML VIAL IV ONE (07:54)
[2017-06-21] MEDS ORDERED: GLYCOPYRROLATE 0.2 MG/ML 2 ML VIAL ONE (07:54)
[2017-06-21] MEDS ORDERED: HYDROmorphone (PF) 1 MG/ML ONE (07:54)
[2017-06-21] MEDS ORDERED: BUPIVACAINE-EPI 0.5%-1:200,000 10 ML VIAL SQ ONE ×2 (08:00→08:19)
[2017-06-21] MEDS ORDERED: SODIUM CHLORIDE 0.9% 100 ML with ceFAZolin 2,000 MG IV ONE ×2 (08:16)
[2017-06-21] MEDS ORDERED: LACTATED RINGERS 1,000 ML IV ONE (08:48)
--- NOTE | 2017-06-21 08:53 | P.OP ---
Date of Procedure: 06/21/17 Preoperative Diagnosis: Cholecystitis Postoperative Diagnosis: Cholecystitis Procedure(s) Performed: Laparoscopic cholecystectomy Implants: Anesthesia: MEHDI Surgeon: Bhavesh Fonseca Estimated Blood Loss (ml): 5 Pathology: other (Gallbladder) Condition: stable Disposition: PACU Indications for Procedure: Operative Findings: Description of Procedure: The patient was placed on the operating table. The patient received a general endotracheal tube anesthesia. The patients abdomen was prepped and draped in the usual sterile fashion. Through an infraumbilical stab incision, the fascia of the anterior abdominal wall was grasped with a pair of Kochers and then the Veress needle was placed in the peritoneal cavity. Position of the Veress needle was confirmed with positive drop test. The abdomen was then insufflated. After adequate insufflation, the 10 mm trocar was placed in the peritoneal cavity. Following this the laparoscope was placed in the peritoneal cavity. The patient was placed in the head-up, right side up position and then a 5 mm trocar was placed in the right lateral and right subcostal position under direct visualization. A 8 mm trocar was placed in the epigastric position. The gallbladder was grasped in the fundus and infundibulum. Traction on the gallbladder was placed in the lateral and the cephalad positions. The triangle of Calot was visualized.. The cystic duct was bluntly dissected until the union of the cystic duct and common bile duct was seen. The cystic duct was then divided and sealed with the Harmonic scissors. A PDS Endoloop was then placed throughout the cystic duct stump. The cystic artery divided and sealed with the Harmonic scissors. The gallbladder was then removed from the liver bed using Harmonic scissors. The gallbladder was then extracted through the epigastric port site. Operative field was checked for any bleeding spots and Harmonic scissors was used to coagulate the liver bed. The abdomen was irrigated. The trocars were removed. The skin was closed using interrupted 3-0 Vicryl suture. Dermabond dressing were applied. The patient tolerated the procedure well.
[2017-06-21] MEDS ORDERED: PROMETHAZINE INJ 25 MG/ML 1 ML VIAL IVPB ONE (09:06)
[2017-06-21 09:16] VITALS: TEMP 98.6
[2017-06-21] MEDS ORDERED: HYDROcodone/APAP 7.5-325MG 1 EACH TAB PO ONE (10:07)
[2017-06-21] MEDS ORDERED: HYDROmorphone 1 MG/ML 1 ML SYRINGE IVP ONE (10:46)
[2017-06-21 10:56] VITALS: BP 123/77; PULSE 53; RESP 16
== END 2017-06-21 11:28 | disposition home or self-care (01) ==
LOC: OR 06:32
PROVIDERS: ATTEND Surgery
DX: K81.1 Chronic cholecystitis (principal); K21.9 Gastro-esophageal reflux disease without esophagitis; M19.90 Unspecified osteoarthritis, unspecified site; F41.9 Anxiety disorder, unspecified; F17.200 Nicotine dependence, unspecified, uncomplicated; F32.9 Major depressive disorder, single episode, unspecified; Z88.2 Allergy status to sulfonamides; Z88.6 Allergy status to analgesic agent; Z88.1 Allergy status to other antibiotic agents; Z91.040 Latex allergy status
CPT/HCPCS: 88304; 47562; J2250; J1100; J2550; J2710; J2405; J0690; J2001; J3010; J1170; J0330; J2704

== ENCOUNTER → 2018-08-19 | Day surgery (SDC) | payer OTHER ==
[2018-08-13 17:56] VITALS: BMI 32.6
[~2018-08-19] MED LIST changes: -DEXAMETHASONE SOD PHOSPHATE 10 MG/ML 1 ML VIAL IV ONE; -HYDROmorphone 1 MG/ML 1 ML SYRINGE IVP PRN; -LACTATED RINGERS 1,000 ML IV SCH; -LIDOCAINE 1% 20 ML VIAL (10MG/ML) FOR IV START INTRADERMA PRN; -MIDAZOLAM 2 MG/2 ML VIAL IV PRN; -ONDANSETRON 4 MG/2 ML VIAL IVP ONE; -SCOPOLAMINE 1.5MG/72HR PATCH TRANSDERM ONE; +SODIUM CHLORIDE 0.9% 500 ML 500 ML IV SCH
[2018-08-19 10:35] VITALS: RESP 18; TEMP 98
--- NOTE | 2018-08-19 11:00 | P.PCN ---
Date of Procedure: 08/19/18 Procedure(s) Performed: PREOPERATIVE DIAGNOSIS: 1- Lumbar Degenerative Disc Diseases 2-Lumbar spondylosis with Facet arthropathy without myelopathy POSTOPERATIVE DIAGNOSIS: 1-Lumber Degenerative Disc Diseases 2-Lumbar spondylosis with Facet arthropathy without myelopathy PROCEDURE 1. Lumbar epidural steroid injection under fluoroscopic guidance at the L5-S1 level. 2. Lumbar epidurogram. ANESTHESIA: Local with 1% lidocaine 3 ml and , moderate sedation with intravenous Versed 2 mg ,and fentanyle 100 Mcg EBL: Minimal PROCEDURE INDICATION: The patient with low back pain and radiculitis symptoms unresponsive to conservative treatment. Fluoroscopy was used to optimize visualization of the needle placement and to maximize safety. PROCEDURE DESCRIPTION / TECHNIQUE: The patient was seen and identified in the preoperative area. Risks, benefits , complications including but not limited to infections ,bleeding ,allergic reaction to the medications ,nerve damage and not complete pain releife , and alternatives were discussed with the patient. The patient agreed to proceed with the procedure and signed the consent. IV was started, and vital signs were stable. Patient was taken to the OR and time out was completed. The patient was placed in the prone position on procedure table and a pillow was placed under the abdomen to reduce lumbar lordosis. The lumbosacral area was prepped and draped in the usual sterile fashion.ere closely monitored during the procedure. Conscious sedation was used during the procedure to decrease patients anxiety. Vital signs was monitered during the entire procedure. Using anterior-posterior fluoroscopy, the L5-S1 interlaminar space was identified and the skin over this site was marked and then infiltrated with 1% lidocaine subcutaneously. Subsequently, a 20-gauge Tuohy epidural needle was inserted and advanced toward the epidural space using the ``Loss of resistance technique and guided by AP and lateral fluoroscopy. The correct needle position in the epidural space was verified with the injection of 2 mL of the water soluble contrast dye Isovue 200 contrast and observing an excellent epidurogram with the epidural spread of the dye, after negative aspiration for blood and CSF and in the absence of paresthesias. Again after negative aspiration, a 6 ml mixture containing 80 mg of Depo-Medrol and 2 ml of preservative free Normal Saline, and 2 ml of preservative free lidocaine 1% solution was injected and a washout of epidurogram was seen. Needle was withdrawn intact, skin was cleansed, and bandages were applied. COMPLICATIONS: None DISPOSITION / PLANS: The patient was placed in a supine position and transferred to the recovery area in a stable condition for observation. There was no evidence of lower extremity motor or sensory deficit after the procedure. Patient was discharged from the recovery room after meeting discharge criteria. Home discharge instructions were given to the patient by the staff. The patient was reexamined prior to discharge. The patient will schedule a follow up in the clinic in 2-4 weeks.
--- NOTE | 2018-08-19 11:08 | FL ---
EXAMINATION TYPE: FL guided pain mgmt statistic DATE OF EXAM: 08/19/2018 HISTORY: Pain FL time [address] Lopez. 1 OR paper film scanned
[2018-08-19 11:35] VITALS: BP 116/66; PULSE 72
== END | disposition home or self-care (01) ==
LOC: ORPAIN 09:42
PROVIDERS: ATTEND Specialist
DX: M47.26 Other spondylosis with radiculopathy, lumbar region (principal); M51.16 Intervertebral disc disorders with radiculopathy, lumbar region; K21.9 Gastro-esophageal reflux disease without esophagitis; Z88.2 Allergy status to sulfonamides; Z88.6 Allergy status to analgesic agent; Z91.040 Latex allergy status
CPT/HCPCS: 62323; J2250; J1030; J3010; Q9966

== ENCOUNTER 2018-09-09 11:00 | Day surgery (SDC) | payer OTHER ==
[2018-09-06 09:15] VITALS: BMI 32.6
[2018-09-09 10:24] VITALS: RESP 18; TEMP 97.6
--- NOTE | 2018-09-09 10:32 | P.PCN ---
Date of Procedure: 09/09/18 Preoperative Diagnosis: Lumbar radiculopathy Postoperative Diagnosis: Same Procedure(s) Performed: Lumbar epidural steroid injection at L5-S1 Anesthesia: MAC (Conscious sedation) Description of Procedure: PREOPERATIVE DIAGNOSIS: 1-lumbar radiculopathy POSTOPERATIVE DIAGNOSIS: Lumbar radiculopathy PROCEDURE 1. Lumbar epidural steroid injection under fluoroscopic guidance at the L 5/1 level. 2. Lumbar epidurogram. ANESTHESIA: Local with 1% lidocaine 5 ml with 2 mg of Versed and 50 g of fentanyl EBL: Minimal PROCEDURE INDICATION: The patient with low back pain and radiculitis symptoms unresponsive to conservative treatment. Fluoroscopy was used to optimize visualization of the needle placement and to maximize safety. PROCEDURE DESCRIPTION / TECHNIQUE: The patient was seen and identified in the preoperative area. Risks, benefits , complications including but not limited to infections ,bleeding ,allergic reaction to the medications ,nerve damage and not complete pain releife , and alternatives were discussed with the patient. The patient agreed to proceed with the procedure and signed the consent. IV was started, and vital signs were stable. Patient was taken to the OR and time out was completed. The patient was placed in the prone position on procedure table and a pillow was placed under the abdomen to reduce lumbar lordosis. The lumbosacral area was prepped and draped in the usual sterile fashion.ere closely monitored during the procedure. Conscious sedation was used during the procedure to decrease patientss anxiety. Vital signs was monitered during the entire procedure. Using anterior-posterior fluoroscopy, the L 5-1 interlaminar space was identified and the skin over this site was marked and then infiltrated with 1% lidocaine subcutaneously. Subsequently, a 20-gauge Tuohy epidural needle was inserted and advanced toward the epidural space using the ``Loss of resistance technique and guided by AP and lateral fluoroscopy. The correct needle position in the epidural space was verified with the injection of 1 mL of the water soluble contrast dye Omnipaque 180 contrast and observing an excellent epidurogram with the epidural spread of the dye, after negative aspiration for blood and CSF and in the absence of paresthesias. Again after negative aspiration, a 4 ml mixture containing 10 mg of Dexamethasone and 3 ml of preservative free Normal Saline was injected and a washout of epidurogram was seen. Needle was withdrawn intact, skin was cleansed, and bandages were applied. COMPLICATIONS: None DISPOSITION / PLANS: The patient was placed in a supine position and transferred to the recovery area in a stable condition for observation. There was no evidence of lower extremity motor or sensory deficit after the procedure. Patient was discharged from the recovery room after meeting discharge criteria. Home discharge instructions were given to the patient by the staff. The patient was reexamined prior to discharge. The patient will schedule a follow up in the clinic in 2-4 weeks.
[~2018-09-09 11:00] MED LIST changes: +SODIUM CHLORIDE 0.9% 500 ML 500 ML IV ONE; -SODIUM CHLORIDE 0.9% 500 ML 500 ML IV SCH
[2018-09-09] MEDS ORDERED: SODIUM CHLORIDE 0.9% 500 ML 500 ML IV ONE (11:16)
[2018-09-09 11:19] VITALS: BP 117/63; PULSE 63
--- NOTE | 2018-09-09 14:01 | FL ---
EXAMINATION TYPE: FL guided pain mgmt statistic DATE OF EXAM: 09/09/2018 FLUOROSCOPY Fluoroscopy time of 1 second was used during lumbar epidural injection. 1 image/s document/s the pro cedure.
== END 2018-09-09 13:40 | disposition home or self-care (01) ==
LOC: ORPAIN 11:00
PROVIDERS: ATTEND Hospitalist
DX: M54.16 Radiculopathy, lumbar region (principal); Z88.6 Allergy status to analgesic agent
CPT/HCPCS: 62323; J2250; J1100; J3010; Q9966

== ENCOUNTER 2020-05-23 12:16 | Emergency (ER) | payer BC, OTHER ==
[2020-05-23] MEDS ORDERED: SODIUM CHLORIDE 0.9% 1,000 ML IV STA (12:29)
--- NOTE | 2020-05-23 12:36 | ED ---
Abdominal Pain HPI - General Chief Complaint: Abdominal Pain Stated Complaint: ABDOMINAL PAIN Time Seen by Provider: 05/23/20 12:25 Source: patient Mode of arrival: ambulatory Limitations: no limitations - History of Present Illness Initial Comments: Patient is a 50-year-old female presents emergency Department with a chief complaint of abdominal pain. Patient states the symptoms began approximately one week ago and mostly located in the right lower quadrant region. States it was waxing and waning in nature but over the last few days it has been constant and sharp in nature. She denies any radiation of the pain. States for the past today she's been having nausea with multiple episodes of nonbilious and nonbloody vomiting. Patient states she has been having loose stools. States the pain is not related to by mouth intake or with bowel movements. Denies any hematuria, hematochezia or melena. She does report urinary frequency but states that her baseline. Denies urgency or dysuria. Denies any night sweats or chills. Denies any back pain, chest pain or shortness of breath. Does report history of , cholecystectomy and a hysterectomy. - Related Data Home Medications Medication Instructions Recorded Confirmed Acetaminophen [Tylenol Extra 500 - 1,000 mg PO Q4-6H PRN 08/13/18 09/09/18 Strength] HYDROcodone/APAP 7.5-325MG [[place] 1 tab PO Q4H PRN 09/09/18 09/09/18 7.5-325] Previous Rx's Medication Instructions Recorded Cephalexin [Keflex] 500 mg PO Q6HR #40 cap 05/23/20 Ondansetron Odt [Zofran Odt] 4 mg PO Q8HR PRN #14 tab 05/23/20 Allergies Allergy/AdvReac Type Severity Reaction Status Date / Time latex Allergy Rash/Hives/ Verified 05/23/20 12:24 Itching NSAIDS (Non-Steroidal Allergy Swelling, Verified 05/23/20 12:24 Anti-Inflamma VOMITING sulfamethoxazole Allergy Rash/Hives Verified 05/23/20 12:24 [From Bactrim] trimethoprim [From Bactrim] Allergy Rash/Hives Verified 05/23/20 12:24 baclofen AdvReac swelling/vo Verified 05/23/20 12:24 miting/anxi ety indomethacin [From Indocin] AdvReac swelling/vo Verified 05/23/20 12:24 miting/anxi ety Review of Systems ROS Statement: Those systems with pertinent positive or pertinent negative responses have been documented in the HPI. ROS Other: All systems not noted in ROS Statement are negative. Past Medical History Past Medical History: GERD/Reflux, Osteoarthritis (OA) Additional Past Medical History / Comment(s): LOWER Back Pain, RADIATES INTO ABIDA LEGS, SHOOTING PAINS @ NOC. BRONCHITIS HX. History of Any Multi-Drug Resistant Organisms: None Reported Past Surgical History: Section, Cholecystectomy, Hysterectomy, Orthopedic Surgery Additional Past Surgical History / Comment(s): C-S X2. NASAL surgery X2. LT foot BONE SPURS REMOVED. Tummy Tuck. LAPAROSCOPY. Past Anesthesia/Blood Transfusion Reactions: Family History of Problems w/ Anes thesia, Motion Sickness, Postoperative Nausea & Vomiting (PONV) Additional Past Anesthesia/Blood Transfusion Reaction / Comment(s): SEVERE PONV. MOTHER HAD PROBLEM WITH A SURGERY, HEART STOPPED. CLAUSTROPHOBIA Past Psychological History: Anxiety, Depression Smoking Status: Current every day smoker Past Alcohol Use History: Occasional Past Drug Use History: Cocaine, Marijuana - Past Family History Mother Family Medical History: COPD, Thyroid Disorder Additional Family Medical History / Comment(s): DEPRESSION/ANXIETY, DDD Father Family Medical History: Hypertension Additional Family Medical History / Comment(s): ANX/DEPRESSION, ALCOHOLIC, DDD General Exam Limitations: no limitations General appearance: alert, in no apparent distress, obese Head exam: Present: atraumatic, normocephalic, normal inspection Eye exam: Present: normal appearance, PERRL, EOMI Pupils: Present: normal accommodation ENT exam: Present: normal exam, normal oropharynx, mucous membranes moist, TM's normal bilaterally, normal external ear exam Neck exam: Present: normal inspection, full ROM. Absent: tenderness Respiratory exam: Present: normal lung sounds bilaterally. Absent: respiratory distress, wheezes Cardiovascular Exam: Present: regular rate, normal rhythm, normal heart sounds GI/Abdominal exam: Present: soft, tenderness (Right lower quadrant tenderness. Positive McBurney point. Suprapubic tenderness. Negative Rovsing, obturator and psoas.), normal bowel sounds. Absent: distended, guarding, rebound, hernia Extremities exam: Present: normal inspection, full ROM, normal capillary refill, other (+2 +2 ulnar and radial pulses.). Absent: tenderness Back exam: Present: normal inspection, full ROM, tenderness, CVA tenderness (L). Absent: CVA tenderness (R), muscle spasm, paraspinal tenderness, vertebral tenderness Neurological exam: Present: alert, oriented X3, normal gait Psychiatric exam: Present: normal affect, normal mood Skin exam: Present: warm, dry, intact, normal color Course Vital Signs 05/23/20 05/23/20 05/23/20 12:22 12:23 13:23 Temperature 99.5 F Pulse Rate 108 H 86 Respiratory 20 18 18 Rate Blood Pressure 137/85 146/90 O2 Sat by Pulse 98 100 Oximetry 05/23/20 05/23/20 05/23/20 14:00 15:00 15:48 Temperature 99.4 F Pulse Rate 82 82 Respiratory 18 18 18 Rate Blood Pressure 149/86 149/86 O2 Sat by Pulse 100 100 100 Oximetry Medical Decision Making - Medical Decision Making Patient is a 50-year-old female presenting to emergency Department with chief complaint of abdominal pain. On exam patient has suprapubic and right lower quadrant tenderness. She did have some mild left CVA tenderness. Patient was given analgesia, IV fluids anti-medics and emergency department. CBC reveals 11.2 K leukocytosis. CMP is unremarkable. UA reveals elevated white blood cells of 44 and elevated leukocyte esterase. Negative nitrates. CT of abdomen and pelvis was obtained which shows no signs of appendicitis, however does show some fat stranding on the left kidney suggesting acute pyelonephritis. Patient started on Rocephin in the emergency department will be discharged with a 10 day course of Keflex. Patient is tolerating fluids. Her vitals are stable emergen cy department. Patient to be discharged with Zofran advised to drink plenty of water. Return parameters were thoroughly discussed the patient is understanding and agreeable. Case discussed with physician. - Lab Data Result diagrams: 05/23/20 12:48 05/23/20 12:48 Lab Results 05/23/20 05/23/20 05/23/20 Range/Units 12:48 12:48 12:48 WBC 11.2 H (3.8-10.6) k/uL RBC 3.90 (3.80-5.40) m/uL Hgb 13.9 (11.4-16.0) gm/dL Hct 40.8 (34.0-46.0) % MCV 104.8 H (80.0-100.0) fL MCH 35.8 H (25.0-35.0) pg MCHC 34.1 (31.0-37.0) g/dL RDW 12.2 (11.5-15.5) % Plt Count 194 (150-450) k/uL Neutrophils % 82 % Lymphocytes % 10 % Monocytes % 5 % Eosinophils % 1 % Basophils % 0 % Neutrophils # 9.2 H (1.3-7.7) k/uL Lymphocytes # 1.1 (1.0-4.8) k/uL Monocytes # 0.6 (0-1.0) k/uL Eosinophils # 0.1 (0-0.7) k/uL Basophils # 0.0 (0-0.2) k/uL Macrocytosis Slight Sodium (137-145) mmol/L Potassium (3.5-5.1) mmol/L Chloride (98-107) mmol/L Carbon Dioxide (22-30) mmol/L Anion Gap mmol/L BUN (7-17) mg/dL Creatinine (0.52-1.04) mg/dL Est GFR (CKD-EPI)AfAm (>60 ml/min/1.73 sqM) Est GFR (CKD-EPI)NonAf (>60 ml/min/1.73 sqM) Glucose (74-99) mg/dL Calcium (8.4-10.2) mg/dL Total Bilirubin (0.2-1.3) mg/dL AST (14-36) U/L ALT (4-34) U/L Alkaline Phosphatase (38-126) U/L Total Protein (6.3-8.2) g/dL Albumin (3.5-5.0) g/dL Lipase (23-300) U/L Urine Color Yellow Urine Appearance Cloudy H (Clear) Urine pH 5.5 (5.0-8.0) Ur Specific [place] 1.025 (1.001-1.035) Urine Protein 1+ H (Negative) Urine Glucose (UA) Negative (Negative) Urine Ketones Negative (Negative) Urine Blood Small H (Negative) Urine Nitrite Negative (Negative) Urine Bilirubin Negative (Negative) Urine Urobilinogen 2.0 (<2.0) mg/dL Ur Leukocyte Esterase Large H (Negative) Urine RBC 5 (0-5) /hpf Urine WBC 44 H (0-5) /hpf Ur Squamous Epith Cells 11 H (0-4) /hpf Urine Bacteria Rare H (None) /hpf Urine Mucus Many H (None) /hpf Urine HCG, Qual Not Detected (Not Detectd) 05/23/20 Range/Units 12:48 WBC (3.8-10.6) k/uL RBC (3.80-5.40) m/uL Hgb (11.4-16.0) gm/dL Hct (34.0-46.0) % MCV (80.0-100.0) fL MCH (25.0-35.0) pg MCHC (31.0-37.0) g/dL RDW (11.5-15.5) % Plt Count (150-450) k/uL Neutrophils % % Lymphocytes % % Monocytes % % Eosinophils % % Basophils % % Neutrophils # (1.3-7.7) k/uL Lymphocytes # (1.0-4.8) k/uL Monocytes # (0-1.0) k/uL Eosinophils # (0-0.7) k/uL Basophils # (0-0.2) k/uL Macrocytosis Sodium 135 L (137-145) mmol/L Potassium 3.8 (3.5-5.1) mmol/L Chloride 101 (98-107) mmol/L Carbon Dioxide 28 (22-30) mmol/L Anion Gap 6 mmol/L BUN 10 (7-17) mg/dL Creatinine 0.70 (0.52-1.04) mg/dL Est GFR (CKD-EPI)AfAm >90 (>60 ml/min/1.73 sqM) Est GFR (CKD-EPI)NonAf >90 (>60 ml/min/1.73 sqM) Glucose 109 H (74-99) mg/dL Calcium 9.6 (8.4-10.2) mg/dL Total Bilirubin 0.8 (0.2-1.3) mg/dL AST 19 (14-36) U/L ALT 14 (4-34) U/L Alkaline Phosphatase 121 (38-126) U/L Total Protein 7.0 (6.3-8.2) g/dL Albumin 4.2 (3.5-5.0) g/dL Lipase 50 (23-300) U/L Urine Color Urine Appearance (Clear) Urine pH (5.0-8.0) Ur Specific [place] (1.001-1.035) Urine Protein (Negative) Urine Glucose (UA) (Negative) Urine Ketones (Negative) Urine Blood (Negative) Urine Nitrite (Negative) Urine Bilirubin (Negative) Urine Urobilinogen (<2.0) mg/dL Ur Leukocyte Esterase (Negative) Urine RBC (0-5) /hpf Urine WBC (0-5) /hpf Ur Squamous Epith Cells (0-4) /hpf Urine Bacteria (None) /hpf Urine Mucus (None) /hpf Urine HCG, Qual (Not Detectd) Disposition Clinical Impression: Abdominal pain, Acute pyelonephritis Disposition: HOME SELF-CARE Condition: Good Instructions (If sedation given, give patient instructions): Kidney Infection (ED) Additional Instructions: Take prescribed medication as directed. Follow up with a primary care physician. Return to emergency department if symptoms worsen. Drink lots of fluids. Prescriptions: Cephalexin [Keflex] 500 mg PO Q6HR #40 cap Ondansetron Odt [Zofran Odt] 4 mg PO Q8HR PRN #14 tab PRN Reason: Nausea Is patient prescribed a controlled substance at d/c from ED?: No Referrals: Celeste Pena MD [Primary Care Provider] - 1-2 days Time of Disposition: 15:23
[2020-05-23 12:58] LABS: Basophils % (A) 0 %; Eosinophils # (A) 0.1 k/uL (0-0.7); Eosinophils % (A) 1 %; HCT 40.8 % (34.0-46.0); HGB 13.9 gm/dL (11.4-16.0); Lymphocytes # (A) 1.1 k/uL (1.0-4.8); Lymphocytes % (A) 10 %; MCH 35.8 pg (25.0-35.0); MCHC 34.1 g/dL (31.0-37.0); MCV 104.8 fL (80.0-100.0); Macrocytosis Slight; Mean Platelet Volume 7.3; Monocytes # (A) 0.6 k/uL (0-1.0); Monocytes % (A) 5 %; Neutrophils # (A) 9.2 k/uL (1.3-7.7); Neutrophils % (A) 82 %; Platelet Count 194 k/uL (150-450); RDW 12.2 % (11.5-15.5); WBC 11.2 k/uL (3.8-10.6)
[2020-05-23] MEDS ORDERED: ONDANSETRON 4 MG/2 ML VIAL IVP STA (13:03)
[2020-05-23] MEDS ORDERED: PANTOPRAZOLE 40 MG/10 ML VIAL IVP STA (13:03)
[2020-05-23] MEDS ORDERED: MORPHINE SULFATE 4 MG/ML SYRINGE IVP STA (13:03)
[2020-05-23 13:07] LABS: Appearance,Urine Cloudy (Clear); Bacteria,Urine Rare /hpf; Bilirubin,Urine Negative (Negative); Blood,Urine Small (Negative); Color,Urine Yellow; Glucose,Urine (UA) Negative (Negative); Ketones,Urine Negative (Negative); Leukocyte Esterase,Urine Large (Negative); Mucus,Urine Many /hpf; Nitrite,Urine Negative (Negative); PH, Urine 5.5 (5.0-8.0); Protein,Urine 1+ (Negative); RBC,Urine 5 /hpf (0-5); Specific Gravity,Urine 1.025 (1.001-1.035); Squamous Epithelial Cell,Urine 11 /hpf (0-4); WBC,Urine 44 /hpf (0-5)
[2020-05-23 13:08] LABS: ALT 14 U/L (4-34); AST 19 U/L (14-36); African American GFR (CKD) >90 (>60 ml/min/1.73 sqM); Albumin 4.2 g/dL (3.5-5.0); Alkaline Phosphatase 121 U/L (38-126); Anion Gap 6 mmol/L; Blood Urea Nitrogen 10 mg/dL (7-17); Calcium 9.6 mg/dL (8.4-10.2); Carbon Dioxide 28 mmol/L (22-30); Chloride 101 mmol/L (98-107); Glucose 109 mg/dL (74-99); Non-African American GFR(CKD) >90 (>60 ml/min/1.73 sqM); Potassium 3.8 mmol/L (3.5-5.1); Sodium 135 mmol/L (137-145); Total Bilirubin 0.8 mg/dL (0.2-1.3)
[2020-05-23 13:56] VITALS: RESP 18
--- NOTE | 2020-05-23 14:44 | CT ---
EXAMINATION TYPE: CT abdomen pelvis w con DATE OF EXAM: 05/23/2020 COMPARISON: None HISTORY: Abdominal pain CT DLP: 1356.2 mGycm Automated exposure control for dose reduction was used. CONTRAST: Performed with IV Contrast, patient injected with 100 ml mL of Isovue 300. Lung bases show mild subsegmental atelectasis in the posterior left lower lobe. There is no pleural e ffusion. Heart size is normal. There is no pericardial effusion. Liver spleen pancreas appear normal. There are clips from cholecystectomy. Intrahepatic bile ducts ar e not dilated. Common bile duct measures 1.5 cm. There is no adrenal mass. There is fat stranding around the left kidney. There is heterogeneous corti dianna enhancement of the left kidney compared to the right. Delayed images show patchy areas of decreas ed cortical enhancement of the left kidney on the anterior aspect. Ureters are not dilated. There is no retroperitoneal adenopathy. Bladder distends smoothly. There is no inguinal hernia. There is no free fluid in the pelvis. There is small umbilical hernia that contai ns fat. Lumbar vertebra have normal alignment. There is narrowing of L5-S1 disc space. There is no compressio n fracture. Bony pelvis is intact. Appendix is medial and posterior and appears normal. There is no evidence of a bowel obstruction. There is no ascites or free air. There is no mesenteric edema. IMPRESSION: Decreased cortical enhancement left kidney with surrounding fat stranding is suggestive of acute pyel onephritis. Normal appendix.
[2020-05-23] MEDS ORDERED: cefTRIAXone IN SWFI 1,000 MG/10 ML SYRINGE IVP STA (15:04)
[2020-05-23] MEDS ORDERED: HYDROcodone/APAP 10-325MG 1 EACH TAB PO ONE (15:22)
[2020-05-23 15:42] VITALS: BP 149/86; PULSE 82
[2020-05-23 15:49] VITALS: TEMP 99.4
== END 2020-05-23 15:52 | disposition home or self-care (01) ==
LOC: EC 12:16
DX: N10 Acute pyelonephritis (principal); M19.90 Unspecified osteoarthritis, unspecified site; R19.7 Diarrhea, unspecified; F17.200 Nicotine dependence, unspecified, uncomplicated; Z91.040 Latex allergy status; Z88.6 Allergy status to analgesic agent; Z88.2 Allergy status to sulfonamides; Z88.1 Allergy status to other antibiotic agents; Z90.49 Acquired absence of other specified parts of digestive tract; Z90.710 Acquired absence of both cervix and uterus
CPT/HCPCS: 36415; 80053; 83690; 85025; 81001; 81025; 87086; 74177; 99284; 96374; 96375 ×3; J2270; J2405; J0696; C9113; Q9967

== ENCOUNTER → 2020-07-19 | Outpatient (CLI) | payer BC, OTHER ==
--- NOTE | 2020-07-19 19:21 | MR ---
EXAMINATION TYPE: MR lumbar spine wo con DATE OF EXAM: 07/19/2020 COMPARISON: Plain film 09/11/2016 CT 05/23/2020 HISTORY: Low back pain going down right leg, DDD, scoliosis, spondylosis TECHNIQUE: Multiplanar, multisequence images of the lumbar spine were acquired. L1-L2: Posterior broad-based disc bulge causes mild anterior mass effect on the thecal sac. No signif icant foraminal encroachment or spinal stenosis. L2-L3: Posterior extension endplate disc complex causes mild anterior mass effect on the thecal sac. No significant foraminal encroachment or spinal stenosis. L3-L4: Posterior broad-based disc bulge causes mild anterior mass effect on the thecal sac. No signif icant spinal stenosis or foraminal encroachment. L4-L5: Posterior broad-based disc bulge causes anterior mass effect on the thecal sac. Facet arthropa thy with hypertrophy ligamentum flavum causes a trefoil appearance of the thecal sac. Circumferential extension endplate disc complex encroaches somewhat on the neural foramen on the right. This may be contributed by spinal curvature. L5-S1: Normal disc appearance without desiccation. No herniation, protrusion or disc bulging. No ca nal stenosis is present. Foramina are patent bilaterally. There is facet arthropathy change present. Posterior extension of endplate disc complex causes only minimal anterior mass effect on the anterio r thecal sac. Lumbar segments are intact. No paraspinal masses are identified. Conus medullaris has a normal appe arance. There is multilevel spondylosis with endplate discogenic marrow signal change, associated los s of disc height signal greatest at L5-S1 lesser extent L3-4, L2-3 and also at L4-5, L3-4, there is a ssociated vacuum disc phenomena L5-S1. There is a spinal curvature. The common bile duct is dilated. This may be due to postcholecystectomy change. IMPRESSION: Degenerative disc disease, facet arthropathy, spinal curvature and additional findings described yvette parra
== END | disposition home or self-care (01) ==
LOC: RADMRIMAIN 06:35
PROVIDERS: ATTEND Physical Medicine & Rehabilitation
DX: M51.16 Intervertebral disc disorders with radiculopathy, lumbar region (principal); M47.26 Other spondylosis with radiculopathy, lumbar region; M47.27 Other spondylosis with radiculopathy, lumbosacral region; M43.8X6 Other specified deforming dorsopathies, lumbar region
CPT/HCPCS: 72148

== ENCOUNTER → 2021-03-28 | Outpatient (CLI) | payer BC ==
--- NOTE | 2021-03-30 12:09 | MM ---
Reason for exam: screening (asymptomatic). Last mammogram was performed 4 years and 4 months ago. History: Took hormonal contraceptives for 2 years. Physical Findings: A clinical breast exam by your physician is recommended on an annual basis and results should be correlated with mammographic findings. MG Screening Mammo w CAD Bilateral CC and MLO view(s) were taken. Prior study comparison: November 15, 2016, bilateral MG screening mammo w CAD. September 25, 2014, bilateral MG screening mammo w CAD. There are scattered fibroglandular densities. There is chronic nodularity in the right breast. Spot compression recommended to exclude underlying distortion upper outer quadrant right breast. The area is more defined. ASSESSMENT: Incomplete: need additional imaging evaluation, BI-RAD 0 RECOMMENDATION: Special view mammogram of the right breast. (3D) If lesion persists on supplemental views, image directed ultrasound is recommended. [facility] will attempt to contact patient to return for supplemental views and ultrasound if indicated.
== END | disposition home or self-care (01) ==
LOC: RADMAMWWP 16:45
PROVIDERS: ATTEND Family Medicine
DX: Z12.31 Encounter for screening mammogram for malignant neoplasm of breast (principal)
CPT/HCPCS: 77067

== ENCOUNTER → 2021-04-12 | Outpatient (CLI) | payer BC ==
--- NOTE | 2021-04-12 15:53 | USB ---
EXAMINATION TYPE: US breast workup limited RT DATE OF EXAM: 04/12/2021 COMPARISON: Mammogram same date, 03/28/2021 CLINICAL HISTORY: R92.8 abnormal mammogram. Findings: Targeted right breast ultrasound was performed from 9 -12:00. There is no sonographic correlate for t he asymmetry seen on mammogram which demonstrated partial pliability. IMPRESSION: No sonographic correlate for the asymmetry seen on mammogram which demonstrates partial pliability. F ollow-up right diagnostic mammogram is recommended in 6 months. BI-RADS 3, probably benign.
--- NOTE | 2021-04-13 08:32 | MM ---
Reason for exam: additional evaluation requested from abnormal screening. Last mammogram was performed less than 1 month ago. History: Took hormonal contraceptives for 2 years. Physical Findings: Nurse did not find any significant physical abnormalities on exam. MG Work Up Mamm w CAD RT Spot compression CC, spot compression MLO, and ML view(s) were taken of the right breast. Prior study comparison: March 28, 2021, bilateral MG screening mammo w CAD. November 15, 2016, bilateral MG screening mammo w CAD. There are scattered fibroglandular densities. There is partial pliability of the right upper outer quadrant asymmetry. Ultrasound recommended. These results were verbally communicated with the patient and result sheet given to the patient on 04/12/21. ASSESSMENT: Incomplete: need additional imaging evaluation, BI-RAD 0 RECOMMENDATION: Ultrasound of the right breast. RONNI
== END | disposition home or self-care (01) ==
LOC: RADMAMWWP 14:55
PROVIDERS: ATTEND Family Medicine
DX: R92.8 Other abnormal and inconclusive findings on diagnostic imaging of breast (principal)
CPT/HCPCS: 77065

== ENCOUNTER → 2021-08-10 | Outpatient (CLI) | payer OTHER ==
--- NOTE | 2021-08-10 17:01 | XR ---
EXAMINATION TYPE: XR elbow complete RT, XR wrist complete RT, XR hand complete RT DATE OF EXAM: 08/10/2021 COMPARISON: NONE HISTORY: 51 years Female. STUDY INDICATION GIVEN: M77.01,M65.331,R20.9 . TECHNIQUE: 3 radiographs of the right elbow, 4 radiographs of the right wrist. 3 radiographs of the r ight hand. IMPRESSION: Elbow radiographs: No elbow fracture or dislocation seen. No joint effusion. Significant soft tissue abnormality. Hand and wrist radiographs: Slight decrease in cortical attenuation along the lateral aspect of the distal radial shaft concernin g for nondisplaced radial fracture. It does not appear that the fracture extends into the radiocarpal joint. The radioulnar joint is normal. There is a focal defect along the lateral aspect of the scaphoid distal pole with well corticated mar gins this is favored to be a normal variant rather than an acute nondisplaced fracture. Recommend cor relation with point tenderness. Mild soft tissue swelling noted over the ulnar aspect of the wrist. The intercarpal, carpometacarpal and interphalangeal joints are maintained.
== END | disposition home or self-care (01) ==
LOC: RADXRMAIN 16:26
PROVIDERS: ATTEND Emergency Medicine
DX: M77.01 Medial epicondylitis, right elbow (principal); M65.331 Trigger finger, right middle finger

== ENCOUNTER → 2021-10-25 | Outpatient (CLI) | payer BC ==
[2021-10-25 10:37] LABS: Basophils % (A) 1 %; Eosinophils # (A) 0.2 k/uL (0-0.7); Eosinophils % (A) 3 %; HCT 41.4 % (34.0-46.0); HGB 13.5 gm/dL (11.4-16.0); Lymphocytes # (A) 1.4 k/uL (1.0-4.8); Lymphocytes % (A) 20 %; MCHC 32.7 g/dL (31.0-37.0); MCV 113.1 fL (80.0-100.0); Macrocytosis Marked; Mean Platelet Volume 7.2; Monocytes # (A) 0.3 k/uL (0-1.0); Monocytes % (A) 4 %; Neutrophils # (A) 4.9 k/uL (1.3-7.7); Neutrophils % (A) 70 %; Platelet Count 199 k/uL (150-450); RBC 3.66 m/uL (3.80-5.40); RDW 13.6 % (11.5-15.5)
[2021-10-25 12:18] LABS: Anisocytosis (M) Present; Poikilocytosis (M) Present
== END | disposition home or self-care (01) ==
LOC: LABPAT 09:17
PROVIDERS: ATTEND Orthopaedic Surgery Hand Surgery
DX: Z01.812 Encounter for preprocedural laboratory examination (principal); G56.01 Carpal tunnel syndrome, right upper limb; G56.02 Carpal tunnel syndrome, left upper limb
CPT/HCPCS: 36415; 80051; 85025

== ENCOUNTER 2021-10-26 10:40 | Day surgery (SDC) | payer BC, OTHER ==
[2021-10-25 08:54] VITALS: BMI 31.4
--- NOTE | 2021-10-25 09:04 | P.HPOR ---
History of Present Illness H&P Date: 10/25/21 Chief Complaint: Right carpal tunnel syndrome, Right middle finger trigger f rebecca Subjective: This is a 51 year old female that presents today for follow up evaluation regarding bilateral hand numbness and right middle finger triggering that have been present for the past several months. 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 She has noticed paresthesias in both hands mainly in the thumb, index and middle fingers on both sides for several months and has tried night splinting months with little relief. She notes the medial elbow pain has improved since she has been off of work. She recently completed her EMG and is here today to discuss results. Physical Examination: RUE: AIN/PIN/Radial/Ulnar/Median motor intact. Radial/Ulnar/Median SILT. 2+/4 Radial/Ulnar pulses palpated. Wrist flexion/extension 85/85. TTP at A1 Domo of RMF with locking, clicking and catching of digits with flexion/extension. Negative CMC grind, negative finkelsteins. Negative scaphoid shift. No pain with resisted wrist extension, NTTP over medial epicondyle at flexor/pronator insert ions with resisted wrist flexion. Positive Durkan's compression. LUE: AIN/PIN/Radial/Ulnar/Median motor intact. Radial/Ulnar/Median SILT. 2+/4 Radial/Ulnar pulses palpated. Positive Durkan's compression. Wrist flexion/extension 85/80. EMG: Bilateral carpal tunnel syndrome, left slightly worse than the right. Impression: 1.) B/L carpal tunnel syndrome 2.) Right middle finger trigger finger 3.) Right medial epicondylitis Plan: Diagnosis and treatment options were discussed with the patient. She has bi lateral carpal tunnel syndrome and a right middle finger trigger finger that has failed conservative treatment. She would like to proceed with bilateral staged endoscopic carpal tunnel release surgery in addition to a right middle finger A1 domo release. Risks and benefit of surgery including bleeding, infection, damage to surrounding tissue, need for further surgery, possible need to convert to open procedure, residual numbness were discussed and the patient wished to go forward with surgery. I anticipate 2-3 weeks off of work after each surgery and we will plan to stage the right and left procedures 2 weeks apart. Pre-op labs and EKG will be ordered. All questions answered. -Miguelito Rios DO Orthopedic Hand/Upper Extremity Surgeon Past Medical History Past Medical History: GERD/Reflux Additional Past Medical History / Comment(s): LOWER Back Pain History of Any Multi-Drug Resistant Organisms: None Reported Past Surgical History: Section, Cholecystectomy, Hysterectomy, Orthopedic Surgery Additional Past Surgical History / Comment(s): NASAL surgery X2. LT foot BONE SPURS REMOVED. Tummy Tuck. Past Anesthesia/Blood Transfusion Reactions: Family History of Problems w/ Anesthesia, Motion Sickness, Postoperative Nausea & Vomiting (PONV) Additional Past Anesthesia/Blood Transfusion Reaction / Comment(s): SEVERE PONV. MOTHER HAD PROBLEM WITH A SURGERY, HEART STOPPED. 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 NO CURRENT DRUG USE. - Past Family History Mother Family Medical History: COPD, Thyroid Disorder Additional Family Medical History / Comment(s): DEPRESSION/ANXIETY, DDD Father Family Medical History: Hypertension Additional Family Medical History / Comment(s): ANX/DEPRESSION, ALCOHOLIC, DDD Medications and Allergies Home Medications Medication Instructions Recorded Confirmed Type ALPRAZolam [Xanax] 0.5 mg PO DAILY PRN 10/25/21 10/25/21 History Diazepam [Valium] 10 mg PO HS PRN 10/25/21 10/25/21 History HYDROcodone/APAP 5-325MG [[place] 1 tab PO Q6HR PRN 10/25/21 10/25/21 History 5-325] Allergies Allergy/AdvReac Type Severity Reaction Status Date / Time latex Allergy Rash/Hives/ Verified 10/25/21 08:43 Itching NSAIDS (Non-Steroidal Allergy Swelling, Verified 10/25/21 08:43 Anti-Inflamma VOMITING sulfamethoxazole Allergy Rash/Hives Verified 10/25/21 08:43 [From Bactrim] trimethoprim [From Bactrim] Allergy Rash/Hives Verified 10/25/21 08:43 baclofen AdvReac swelling/vo Verified 10/25/21 08:43 miting/anxi ety indomethacin [From Indocin] AdvReac swelling/vo Verified 10/25/21 08:43 miting/anxi ety Physical Examination Osteopathic Statement: *. No significant issues noted on an osteopathic structural exam other than those noted in the History and Physical/Consult.
[~2021-10-26 10:40] MED LIST changes: +Pre Op ABX Message 1 EACH MISC MISCELLANE ONE; -SODIUM CHLORIDE 0.9% 500 ML 500 ML IV ONE
[2021-10-26] MEDS ORDERED: LACTATED RINGERS 1,000 ML IV ONE ×3 (11:12→13:06)
[2021-10-26] MEDS ORDERED: DEXAMETHASONE SOD PHOSPHATE 4 MG/ML 1 ML VIAL IVP ONE (11:13)
[2021-10-26] MEDS ORDERED: ONDANSETRON 4 MG/2 ML VIAL IVP ONE (11:13)
[2021-10-26] MEDS ORDERED: SCOPOLAMINE 1.5MG/72HR PATCH TRANSDERM ONE (11:14)
[2021-10-26] MEDS ORDERED: ONDANSETRON 4 MG/2 ML VIAL ONE (11:18)
[2021-10-26] MEDS ORDERED: MIDAZOLAM 2 MG/2 ML VIAL IV ONE (12:06)
[2021-10-26] MEDS ORDERED: fentaNYL (PF) 50 MCG/ML 2 ML AMP ONE (12:19)
[2021-10-26] MEDS ORDERED: MIDAZOLAM 2 MG/2 ML VIAL ONE (12:19)
[2021-10-26] MEDS ORDERED: PROPOFOL 10 MG/ML 20 ML VIAL IV ONE (12:19)
[2021-10-26] MEDS ORDERED: KETAMINE 10 MG/ML 20 ML VIAL ONE (12:19)
[2021-10-26] MEDS ORDERED: LIDOCAINE 1% INJ 10MG/ML (20 ML MDV) SQ ONE (12:33)
[2021-10-26] MEDS ORDERED: BUPIVACAINE (PF) 0.5% 30 ML VIAL SQ ONE (12:33)
[2021-10-26] MEDS ORDERED: HYDROcodone/APAP 5-325MG 1 EACH TAB PO ONE (13:30)
[2021-10-26] MEDS ORDERED: HYDROcodone/APAP 5-325MG 1 EACH TAB ONE (13:32)
[2021-10-26 14:04] VITALS: RESP 16
[2021-10-26 14:05] VITALS: BP 130/70; PULSE 66
--- NOTE | 2021-10-26 18:04 | P.OP ---
Date of Procedure: 10/26/21 Preoperative Diagnosis: 1.) Right carpal tunnel syndrome 2.) Right middle finger trigger finger Postoperative Diagnosis: Same Procedure(s) Performed: 1.) Right endoscopic carpal tunnel release 2.) Right middle finger A1 Domo release Anesthesia: MAC Surgeon: Miguelito Rios Second Baker #1: Eduardo Connelly Estimated Blood Loss (ml): 0 Pathology: none sent Condition: stable Disposition: PACU Description of Procedure: This is a 51 year old female who presents today for a right endoscopic carpal tunnel release and a right middle finger A1 domo release after having failed conservative treatment in the past. Risks and benefits of surgery were discussed with the patient including bleeding, damage to surrounding tissue, infection, need to convert to open procedure, need for further surgery as well as risks of anesthesia including pulmonary embolism and even and the patient wished to proceed with surgical intervention. The patients was seen in the pre-operative area by myself. Consent and H&P were completed and updated. The correct extremity was marked in the pre-operative area by myself and all other questions were answered. Operative Narrative: The patient was brought to the operating room by the department of ane sthesia. They remained on the portable stretcher and a rolling hand table was brought to the side of the operative extremity. Pre-operative time out was performed indicating the correct patient, procedure and laterality. All in the room agreed. The patient was then drifted off to sleep by the department of anesthesia. MAC anesthesia was utilized and a 50:50 mixture of 1% Lidocaine and 0.5% bupivacaine was injected into the subcutaneous tissues of the palmar skin, 10ccs total. A nonsterile tourniquet was then applied to the operative extremity and the right upper extremity was then prepped and draped in normal sterile fashion. The operative extremity was the exsanguinated with an esmarch bandage and the tourniquet was inflated to 250mmHg. 15 blade scalpel was utilized to make a transverse incision on the palmar skin just ulnar to the palmaris longus tendon at the level of the distal wrist crease. Ragnell retractor was then placed radially and blunt dissection was performed to reveal the distal forearm fascia. This was lifted with fine Blaise pick ups and Littler tenotomy scissors were then used to open the forearm fascia transversely and a double skin hook was then placed. Hamate finder was placed into the carpal tunnel and then sequential sized dilators were inserted followed by the synovial elevator to separate the flexor tenosynovium from the undersurface of the transverse carpal ligament and a washboard texture was felt. The MicroAire endoscopic carpal tunnel release system gun was the then inserted into the carpal tunnel hugging the deep portion of the transverse carpal ligament in line with the base of the ring finger. Transverse fibers of the ligament were directly visualized. Pressure was applied on the palm to reveal the distal extent of the transverse carpal ligament. The blade was then deployed and the distal half of the transverse carpal ligament was released. The scope was then brought distal again and remaining transverse fibers were incised with the blade. The proximal half of the transverse carpal ligament was then divided and again the scope was advanced distal and remaining transverse fibers were incised with the blade. The radial and ulnar leaflets were directly visualized and mobile consistant with complete release. Tenotomy scissors were then utilized to release the remaining distal forearm fascia under direct visualization taking care to preserve the palmar cutaneous branch of the median nerve. Skin closure was performed with interrupted 4-0 Monocryl suture followed by Mastisol and steri strips. Attention was then drawn to the right middle finger. Oblique incision was made at the base of the right middle finger. Blunt dissection was taken down to the level of the A1 domo. Ragnell retractors were placed both radially and ulnarly to protect neurovascular bundles. Littler tenotomy scissors were then used to release the A1 domo from proximal to distal under direct visualization. Proximal fascial attachments were released. The tendon was then taken through range of motion and no locking or catching was appreciated. The wound was then closed with interrupted 4-0 nylon sutures in a horizontal mattress fashion. Sterile dressing consisting of adaptic, 4x4s, webril, and an smooth wrap was applied. Tourniquet was let down and the hand was immediately well perfused. The patient was then woken by the department of anesthesia and transferred to PACU in stable condition. Miguelito Rios D.O. Orthopedic Hand/Upper Extremity Surgeon
== END 2021-10-26 14:02 | disposition home or self-care (01) ==
LOC: OR 10:40
PROVIDERS: ATTEND Orthopaedic Surgery Hand Surgery
DX: G56.01 Carpal tunnel syndrome, right upper limb (principal); M65.331 Trigger finger, right middle finger; M77.01 Medial epicondylitis, right elbow; K21.9 Gastro-esophageal reflux disease without esophagitis; M54.50 Low back pain, unspecified; F41.9 Anxiety disorder, unspecified; F32.A Depression, unspecified; F17.210 Nicotine dependence, cigarettes, uncomplicated; Z79.899 Other long term (current) drug therapy; Z88.2 Allergy status to sulfonamides; Z88.8 Allergy status to other drugs, medicaments and biological substances; Z91.040 Latex allergy status; Z98.891 History of uterine scar from previous surgery; Z90.49 Acquired absence of other specified parts of digestive tract; Z90.710 Acquired absence of both cervix and uterus; Z98.890 Other specified postprocedural states; Z83.49 Family history of other endocrine, nutritional and metabolic diseases; Z82.5 Family history of asthma and other chronic lower respiratory diseases; Z82.49 Family history of ischemic heart disease and other diseases of the circulatory system
CPT/HCPCS: 29848; 26055; J2250; J1100; J2405; J2001; J3010; J2704

== ENCOUNTER → 2022-02-09 | Outpatient (CLI) | payer BC, OTHER ==
--- NOTE | 2022-02-09 17:09 | MR ---
EXAMINATION TYPE: MR lumbar spine wo con DATE OF EXAM: 02/09/2022 COMPARISON: Prior lumbar MRI 07/19/2020 HISTORY: LBP, LLE radiculopathy x 2 years. TECHNIQUE: Multiplanar, multisequence images of the lumbar spine were acquired without IV contrast. L1-L2: Posterior disc bulge causes mild anterior mass effect on the thecal sac. No significant forami nal encroachment or spinal stenosis. L2-L3: Posterior circumferential disc bulge causes mild anterior mass effect on the thecal sac. There is facet arthropathy with hypertrophy ligamentum flavum causing some posterior lateral mass effect o n the thecal sac. No significant spinal stenosis. Circumferential disc bulge extends towards the left neural foramen, no definite foraminal encroachment. L3-L4: Posterior broad-based disc bulge causes mild anterior mass effect on the thecal sac. No signif icant foraminal encroachment or spinal stenosis. There is some facet arthropathy change. L4-L5: Posterior broad-based disc bulge causes mild anterior mass effect on the thecal sac. Facet art hropathy with hypertrophy ligamentum flavum causes posterior lateral mass effect on the thecal sac. C ircumferential extension endplate disc complex encroaches minimally on the right neural foramen infer ior aspect. No significant spinal stenosis. L5-S1: Facet arthropathy changes present. Circumferential extension endplate disc complex encroaches minimally on the inferior aspect of the foramina. No sizable disc herniation. Lumbar segments are intact. No paraspinal masses are identified. Conus medullaris has a normal appe arance. There is multilevel spondylosis. Endplate discogenic marrow signal changes are present simila r to prior exam. There is loss of disc height signal greatest at L5-S1 and also at L2-3, there is ass ociated vacuum phenomenon present. There is no significant spinal stenosis. There is a spinal curvatu re. IMPRESSION: Degenerative disc disease and facet arthropathy similar to prior exam. No significant spinal stenosis . Spinal curvature.
== END | disposition home or self-care (01) ==
LOC: RADMRIMAIN 15:43
PROVIDERS: ATTEND Physical Medicine & Rehabilitation
DX: M47.817 Spondylosis without myelopathy or radiculopathy, lumbosacral region (principal)
CPT/HCPCS: 72148

== ENCOUNTER → 2022-04-03 | Outpatient (CLI) | payer OTHER ==
[2022-04-03 17:56] LABS: Basophils # (A) 0.04 X 10*3/uL (0.00-0.10); Basophils % (A) 0.6 %; Eosinophils # (A) 0.12 X 10*3/uL (0.04-0.35); Eosinophils % (A) 1.9 %; HCT 40.6 % (37.2-46.3); HGB 13.3 g/dL (12.0-15.0); Immature Grans, Automated 0.3 %; Lymphocytes # (A) 1.86 X 10*3/uL (0.90-5.00); Lymphocytes % (A) 29.7 %; MCH 34.4 pg (27.0-32.0); MCHC 32.8 g/dL (32.0-37.0); MCV 104.9 fL (80.0-97.0); Mean Platelet Volume 10.3 fL (9.5-12.2); Monocytes # (A) 0.47 X 10*3/uL (0.20-1.00); Monocytes % (A) 7.5 %; NRBC Per 100 WBC 0 /100 WBCS (0.0-0.0); Neutrophils # (A) 3.75 X 10*3/uL (1.80-7.70); Platelet Count 203 X 10*3/uL (140-440); RBC 3.87 X 10*6/uL (4.10-5.20); RDW 13.4 % (11.5-14.5); WBC 6.26 X 10*3/uL (4.50-10.00)
[2022-04-03 18:11] LABS: Anion Gap 11.9 mmol/L (10.00-18.00); Carbon Dioxide 22.9 mmol/L (20.0-27.5); Potassium 4.2 mmol/L (3.5-5.5)
== END | disposition home or self-care (01) ==
LOC: LABPAT 12:23
PROVIDERS: ATTEND Orthopaedic Surgery Hand Surgery
DX: Z01.812 Encounter for preprocedural laboratory examination (principal); G56.02 Carpal tunnel syndrome, left upper limb
CPT/HCPCS: 80051; 85025

== ENCOUNTER → 2022-04-05 | Day surgery (SDC) | payer BC, OTHER ==
--- NOTE | 2022-04-04 10:23 | P.HPOR ---
History of Present Illness H&P Date: 04/04/22 Chief Complaint: Left carpal tunnel syndrome Subjective: This is a 51 year old female that presents today for a post-operative visit after undergoing a right endoscopic carpal tunnel release and right middle finger A1 domo release on 10/26/21, she is over 3 months out from surgery. She has made good progress with therapy and has minimal pain and occasional numbness in the fingertips but overall a significant improvement compared to pre- operative symptoms she states. She believes her right hand now is strong enough to go back to work with right handed work only but states her work said they do not have any one handed work available so she has been off of work due to persistent numbness in the left hand mainly in the middle ring and index fingers due to carpal tunnel syndrome. Physical Examination: RUE: AIN/PIN/Radial/Ulnar/Median motor intact. Radial/Ulnar/Median SILT. 2+/4 Radial/Ulnar pulses palpated. Incision at wrist crease healed, middle finger incision fully healed, NTTP, smooth tendon excursion of middle finger with no catching clicking or locking. NTTP along flexor tendon sheath, no signs of flexor tenosynovitis. Able to make a full fist. LUE: AIN/PIN/Radial/Ulnar/Median motor intact. Radial/Ulnar/Median SILT. 2+/4 Radial/Ulnar pulses palpated. Positive Durkan's compression. Positive tinels at wrist. 5/5 APB 5/5 FDI. Impression: 1.) S/P Right endoscopic carpal tunnel release, right middle finger A1 domo release. 2.) Left carpal tunnel syndrome Plan: Diagnosis and treatment options and were discussed with the patient. She would like to go forward with left carpal tunnel release surgery. Risks and benefit of surgery including bleeding, infection, damage to surrounding tissue, need for further surgery, possible need to convert to open procedure, residual numbness were discussed and the patient wished to go forward with surgery. I anticipate 3 weeks off after surgery with return to unrestricted duty at that point. She is agreeable with this plan of action and surgery will be scheduled in the near future. -Miguelito Rios DO Orthopedic Hand/Upper Extremity Surgeon Past Medical History Past Medical History: GERD/Reflux, Osteoarthritis (OA) Additional Past Medical History / Comment(s): LOWER Back Pain, RADIATES INTO ABIDA LEGS, SHOOTING PAINS @ NOC. BRONCHITIS HX. History of Any Multi-Drug Resistant Organisms: None Reported Past Surgical History: Section, Cholecystectomy, Hysterectomy, Orthopedic Surgery Additional Past Surgical History / Comment(s): C-S X2. NASAL surgery X2. LT foot BONE SPURS REMOVED. Tummy Tuck. LAPAROSCOPY. rt carpal tunnel and trigger finger11/12 Past Anesthesia/Blood Transfusion Reactions: Family History of Problems w/ Anesthesia, Motion Sickness, Postoperative Nausea & Vomiting (PONV) Additional Past Anesthesia/Blood Transfusion Reaction / Comment(s): SEVERE PONV. MOTHER HAD PROBLEM WITH A SURGERY, HEART STOPPED. Pt has CLAUSTROPHOBIA Smoking Status: Current every day smoker - Past Family History Mother Family Medical History: COPD, Musculoskeletal Disorder, Thyroid Disorder Additional Family Medical History / Comment(s): DEPRESSION, ANXIETY, DDD. Father Family Medical History: Hypertension, Musculoskeletal Disorder Additional Family Medical History / Comment(s): ANXIETY, DEPRESSION, ALCOHOLic, DDD. Medications and Allergies Home Medications Medication Instructions Recorded Confirmed Type HYDROcodone/APAP 5-325MG [[place] 1 tab PO Q6HR PRN 10/25/21 04/03/22 History 5-325] Allergies Allergy/AdvReac Type Severity Reaction Status Date / Time latex Allergy Rash/Hives/ Verified 04/03/22 14:47 Itching NSAIDS (Non-Steroidal Allergy Swelling, Verified 04/03/22 14:47 Anti-Inflamma VOMITING sulfamethoxazole Allergy Rash/Hives Verified 04/03/22 14:47 [From Bactrim] trimethoprim [From Bactrim] Allergy Rash/Hives Verified 04/03/22 14:47 baclofen AdvReac swelling/vo Verified 04/03/22 14:47 miting/anxi ety indomethacin [From Indocin] AdvReac swelling/vo Verified 04/03/22 14:47 miting/anxi ety Physical Examination Osteopathic Statement: *. No significant issues noted on an osteopathic structural exam other than those noted in the History and Physical/Consult.
[~2022-04-05] MED LIST changes: +BUPIVACAINE (PF) 0.5% 30 ML VIAL SQ ONE; +DEXAMETHASONE SOD PHOSPHATE 4 MG/ML 1 ML VIAL IV ONE; +HYDROmorphone 0.5 MG/0.5 ML SYRINGE IVP PRN; +KETAMINE 10 MG/ML 20 ML VIAL ONE; +LACTATED RINGERS 1,000 ML IV SCH; +LIDOCAINE 1% (10MG/ML) FOR IV START INTRADERMA PRN; +LIDOCAINE 1% INJ 10MG/ML (20 ML MDV) SQ ONE; +MIDAZOLAM 2 MG/2 ML VIAL IVP ONE; +MIDAZOLAM 2 MG/2 ML VIAL ONE; +ONDANSETRON 4 MG/2 ML VIAL IVP ONE; +PROPOFOL 10 MG/ML 20 ML VIAL IV ONE; +SCOPOLAMINE 1 MG/72 HR PATCH TRANSDERM ONE; +fentaNYL (PF) 50 MCG/ML 2 ML AMP ONE
[2022-04-05 13:34] VITALS: TEMP 97.8
[2022-04-05 13:48] VITALS: RESP 16
[2022-04-05 17:13] VITALS: BP 117/86; PULSE 75
--- NOTE | 2022-04-06 07:07 | P.OP ---
Date of Procedure: 04/05/22 Preoperative Diagnosis: Left carpal tunnel syndrome Postoperative Diagnosis: Left carpal tunnel syndrome Procedure(s) Performed: Left endoscopic carpal tunnel release Anesthesia: MAC Surgeon: Miguelito Rios Accounting Machine Mechanic #1: Eduardo Connelly Estimated Blood Loss (ml): 0 Pathology: none sent Condition: stable Disposition: PACU Description of Procedure: This is a 52 year old female who presents today for a left endoscopic carpal tunnel release after having failed conservative treatment in the past. Risks and benefits of surgery were discussed with the patient including bleeding, damage to surrounding tissue, infection, need to convert to open procedure, need for further surgery as well as risks of anesthesia including pulmonary embolism and even and the patient wished to proceed with surgical intervention. The patients was seen in the pre-operative area by myself. Consent and H&P were completed and updated. The correct extremity was marked in the pre-operative area by myself and all other questions were answered. Operative Narrative: The patient was brought to the operating room by the department of anesthesia. They remained on the portable stretcher and a rolling hand table was brought to the side of the operative extremity. Pre-operative time out was performed indicating the correct patient, procedure and laterality. All in the room agreed. The patient was then drifted off to sleep by the department of anesthesia. MAC anesthesia was utilized and a 50:50 mixture of 1% Lidocaine and 0.5% bupivacaine was injected into the subcutaneous tissues of the palmar skin, 7ccs total. A nonsterile tourniquet was then applied to the operative extremity and the left upper extremity was then prepped and draped in normal sterile fashion. The operative extremity was the exsanguinated with an esmarch bandage and the tourniquet was inflated to 250mmHg. 15 blade scalpel was utilized to make a transverse incision on the palmar skin just ulnar to the palmaris longus tendon at the level of the distal wrist crease. Ragnell retractor was then placed radially and blunt dissection was performed to reveal the distal forearm fascia. This was lifted with fine Blaise pick ups and Littler tenotomy scissors were then used to open the forearm fascia transversely and a double skin hook was then placed. Hamate finder was placed into the carpal tunnel and then sequential sized dilators were inserted followed by the synovial elevator to separate the flexor tenosynovium from the undersurface of the transverse carpal ligament and a washboard texture was felt. The MicroAire endoscopic carpal tunnel release system gun was the then inserted into the carpal tunnel hugging the deep portion of the transverse carpal ligament in line with the base of the ring finger. Transverse fibers of the ligament were directly visualized. Pressure was applied on the palm to reveal the distal extent of the transverse carpal ligament. The blade was then deployed and the distal half of the transverse carpal ligament was released. The scope was then brought distal again and remaining transverse fibers were incised with the blade. The proximal half of the transverse carpal ligament was then divided and again the scope was advanced distal and remaining transverse fibers were incised with the blade. The radial and ulnar leaflets were directly visualized and mobile consistent with complete release. Tenotomy scissors were then util ized to release the remaining distal forearm fascia under direct visualization taking care to preserve the palmar cutaneous branch of the median nerve. Skin closure was performed with interrupted 4-0 Monocryl suture followed by Mastisol and steri strips. Sterile dressing was applied consisting of adaptic, 4x4s, Webril, and an smooth bandage. Tourniquet was let down and the hand immediately was well perfused. The patient was then woken by the department of anesthesia and transferred to PACU in stable condition. Eduardo MAYS was present for the case in its entirety and assisted in major portions of the case and protection of vital neurovascular structures. Miguelito Rios D.O. Orthopedic Hand/Upper Extremity Surgeon
== END | disposition home or self-care (01) ==
LOC: OR 12:35
PROVIDERS: ATTEND Orthopaedic Surgery Hand Surgery
DX: G56.02 Carpal tunnel syndrome, left upper limb (principal); K21.9 Gastro-esophageal reflux disease without esophagitis; M19.90 Unspecified osteoarthritis, unspecified site; F41.9 Anxiety disorder, unspecified; F32.A Depression, unspecified; Z90.49 Acquired absence of other specified parts of digestive tract; Z90.710 Acquired absence of both cervix and uterus; F17.200 Nicotine dependence, unspecified, uncomplicated; Z81.8 Family history of other mental and behavioral disorders; Z83.6 Family history of other diseases of the respiratory system; Z82.49 Family history of ischemic heart disease and other diseases of the circulatory system; Z91.040 Latex allergy status; Z88.6 Allergy status to analgesic agent; Z88.2 Allergy status to sulfonamides; Z88.8 Allergy status to other drugs, medicaments and biological substances
CPT/HCPCS: 29848; J2250; J1100; J2405; J2001; J3010; J2704

== ENCOUNTER → 2022-06-07 | Outpatient (CLI) | payer BC, OTHER ==
--- NOTE | 2022-06-08 19:04 | MM ---
Reason for Exam: Screening (asymptomatic). Last mammogram was performed 1 year(s) and 2 month(s) ago. Patient History: Menarche at age 10. First Full-Term at age 23. Hysterectomy at age 34. Postmenopausal. Patient used Hormonal Contraceptives for 2 years. Risk Values: Linh 5 year model risk: 1.1%. NCI Lifetime model risk: 8.4%. Prior Study Comparison: 11/15/2016 Bilateral Screening Mammogram, [facility]. 03/28/2021 Bilateral Screening Mammogram, [facility]. 04/12/2021 Right Diagnostic Mammogram, [facility]. Tissue Density: There are scattered fibroglandular densities. Findings: Analyzed By CAD. Asymmetric density superior right MLO view has become more defined and focal compared to prior studies. There is chronic nodularity in the right upper outer quadrant and also unchanged nodular asymmetric density central posterior right cc view. The appearance on the CC view remains unchanged. This suggests that the MLO density corresponds to superimposition shadow and was noted to have been evaluated last year. For this reason, we recommend a mild short interval follow-up rather than additional workup at this time. Left breast shows no significant change. Overall Assessment: Probably benign, BI-RAD 3 Management: Diagnostic Mammogram of the right breast in 6 months. 1. For the more defined MLO focal asymmetry which has no CC view correlate. Stability on the CC view suggests that this is likely superimposition shadow and we also note that the area was worked up last year as well. 2. Patient should continue monthly self breast exams. Electronically signed and approved by: Hien Mcknight M.D. Radiologist
== END | disposition home or self-care (01) ==
LOC: RADMAMWWP 16:53
PROVIDERS: ATTEND Family Medicine
DX: Z12.31 Encounter for screening mammogram for malignant neoplasm of breast (principal)
CPT/HCPCS: 77067

== ENCOUNTER → 2024-07-22 | Outpatient (CLI) | payer BC ==
--- NOTE | 2024-07-22 22:45 | CT ---
EXAMINATION TYPE: CT abdomen pelvis wo con DATE OF EXAM: 07/22/2024 COMPARISON: 05/23/2020 INDICATION: rlq pain DLP: 621 mGycm, Automated exposure control for dose reduction was used. CONTRAST: 0 mL of Isovue 300. Study performed without Oral Contrast TECHNIQUE: Axial images were obtained from above the diaphragm to the pubic rami in the axial plane a t 5 mm thick sections. Reconstructed images are reviewed on the computer in the coronal plane. FINDINGS: Limited CT sections are obtained the lung bases. The lung bases are clear. CT ABDOMEN: Liver: Normal Spleen: Normal Pancreas: Normal Adrenal glands: The adrenal glands are normal. Gallbladder: Surgically absent Kidneys: No masses are evident. No hydronephrosis is present. No cysts are present. No renal stone s are evident. Aorta: Normal Inferior vena cava: Normal. CT PELVIS: Loops of bowel within the abdomen and pelvis are normal. This study is without oral contrast limi ting bowel evaluation. Appendix: Normal as visualized. Urinary bladder: There may be a tiny urinary bladder diverticulum just to the right of the urinary bl adder. Bladder otherwise appears unremarkable. Genitourinary structures: Uterus and ovaries are not identified. Osseous structures: No suspicious lytic or sclerotic lesions. Facet degenerative changes are present. IMPRESSION: 1. No suspicious abnormalities to account for right lower quadrant pain. The appendix is visualized appears normal. [facility], Workstation: [facility], 07/22/2024 10:43 PM
== END | disposition home or self-care (01) ==
LOC: RADCTMAIN 17:08
PROVIDERS: ATTEND Family Medicine
DX: R10.2 Pelvic and perineal pain (principal); R10.31 Right lower quadrant pain; I10 Essential (primary) hypertension; M54.50 Low back pain, unspecified
CPT/HCPCS: 74176

== ENCOUNTER 2024-08-11 11:16 | Emergency (ER) | payer OTHER, BC ==
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
[2024-08-11 14:13] VITALS: BP 145/90; PULSE 71; RESP 18; TEMP 98.1
== END 2024-08-11 14:59 | disposition home or self-care (01) ==
LOC: EC 11:16
CPT/HCPCS: 70450; 72125; 99283